=== PATIENT | male | born 1945 | race Asian ===

== ENCOUNTER 2021-02-19 14:05 | Inpatient (IN) | payer MEDICARE, OTHER ==
[~2021-02-19] VITALS: Ht 175.3 cm; Wt 73.9 kg
--- NOTE | 2021-02-19 14:15 | NUR ---
BIBRA86, AGITATED UPON LEARNING HE IS GOING TO ANOTHER REECE. PATIENT A/OX2, CZECH SPEAKER ONLY, FAMILY IN THE WAITING ROOM. PATIENT IS CALM AT THIS TIME. BREATHING EVEN AND UNLABORED. PLACED ON THE EDGE SANDER.
[2021-02-19] MEDS ORDERED: LORAZEPAM INJ 2 MG/ML VIAL IM ONE (15:00)
--- NOTE | 2021-02-19 15:08 | NUR ---
URINE SENT TO LAB.
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
--- NOTE | 2021-02-19 15:16 | NUR ---
LINETTE IS SON [phone] AND KEON IS DAUGHTER [phone]
[2021-02-19] MEDS ORDERED: LORAZEPAM INJ 2 MG/ML VIAL ONE (15:18)
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
[2021-02-19 15:24] LABS: BASOPHILS % (AUTO) 0.5 % (0.0-2.0); EOSINOPHILS % (AUTO) 0.6 % (0.0-6.0); HEMATOCRIT 33 % (39-51); HEMOGLOBIN 11.2 g/dL (13.5-17.5); LYMPHOCYTES # (AUTO) 1.6 K/uL (0.8-4.8); LYMPHOCYTES % (AUTO) 17.8 % (20.0-44.0); MEAN CORPUSCULAR HGB CONC 34 g/dl (31.0-36.0); MEAN CORPUSCULAR VOLUME 89 fL (80-96); MONOCYTES # (AUTO) 0.6 K/uL (0.1-1.30); MONOCYTES % (AUTO) 6.3 % (2.0-12.0); NEUTROPHILS # (AUTO) 6.7 K/uL (1.8-8.9); NEUTROPHILS % (AUTO) 74.8 % (43.0-81.0); PLATELET COUNT (AUTO) 288 K/uL (150-450); RED BLOOD CELL COUNT(AUTO) 3.67 MIL/uL (4.5-6.0); WHITE BLOOD COUNT (AUTO) 8.9 K/uL (4.3-11.0)
[2021-02-19 15:40] LABS: ALANINE AMINOTRANSFERASE 14 U/L (12-78); ALBUMIN 4.1 g/dL (3.4-5.0); ALKALINE PHOSPHATASE 86 U/L (46-116); ASPARTATE AMINOTRANSFERASE 13 U/L (15-37); BILIRUBIN,DIRECT 0.1 mg/dL (0.0-0.2); BILIRUBIN,TOTAL 0.3 mg/dL (0.2-1.0); CARBON DIOXIDE 29 mmol/L (21-32); CHLORIDE 107 mmol/L (98-107); CREATININE 2.3 mg/dL (0.6-1.3); GLUCOSE 144 mg/dL (74-106); POTASSIUM 4.1 mmol/L (3.5-5.1); SODIUM SERUM 145 mmol/L (136-145); TOTAL PROTEIN, SERUM 7.9 g/dL (6.4-8.2); UREA NITROGEN, BLOOD 30 mg/dL (7-18)
[2021-02-19 15:57] LABS: ACETAMINOPHEN 0 ug/ml (10-30); ALCOHOL, BLOOD < 10 mg/dL (0-0)
--- NOTE | 2021-02-19 15:59 | NUR ---
MOVE SHEET SUBMITTED.
[2021-02-19] MEDS ORDERED: TAMS-12 PO (16:13)
[2021-02-19] MEDS ORDERED: SEVE800T7 PO (16:13)
[2021-02-19] MEDS ORDERED: CYAN-51 PO (16:13)
[2021-02-19] MEDS ORDERED: DOCU-141 PO (16:13)
[2021-02-19] MEDS ORDERED: INSU100I26 SQ (16:13)
[2021-02-19] MEDS ORDERED: OMEP20CA15 PO (16:13)
[2021-02-19] MEDS ORDERED: BISA10SU11 RC (16:13)
[2021-02-19] MEDS ORDERED: NA P133E RC (16:13)
[2021-02-19] MEDS ORDERED: GABA-532 PO (16:13)
[2021-02-19] MEDS ORDERED: ALLO100T PO (16:13)
[2021-02-19] MEDS ORDERED: MAGN400O6 PO (16:13)
[2021-02-19] MEDS ORDERED: POLY17PO4 PO (16:13)
[2021-02-19] MEDS ORDERED: NIFE-34 PO (16:13)
[2021-02-19] MEDS ORDERED: SENN-261 PO (16:13)
[2021-02-19] MEDS ORDERED: ATOR40TA PO (16:13)
[2021-02-19] MEDS ORDERED: CALC500T63 PO (16:13)
[2021-02-19] MEDS ORDERED: INSU100V27 SQ (16:16)
[2021-02-19] MEDS ORDERED: LACT10SO3 PO (16:16)
[2021-02-19 16:24] LABS: BILIRUBIN,URINE Negative (NEGATIVE); COLOR,URINE YELLOW (YELLOW); LEUKOCYTE ESTERASE ,URINE Negative (NEGATIVE); NITRITE, URINE Negative (NEGATIVE); PH,URINE 6.5 (5.0-8.0); PROTEIN,URINE >=300 mg/dl (NEGATIVE); UGLUCOSE Negative (NEGATIVE); UROBILINOGEN,URINE 0.2 EU/dL (0.2)
[2021-02-19 16:37] LABS: BACTERIA,URINE Rare /HPF (None Seen); RBC,URINE 21-50 /HPF (0-2); SQUAMOUS EPITHELIAL CELL,UR Few /HPF (None Seen); WBC,URINE NONE SEEN /HPF (0-3)
[2021-02-19] MEDS ORDERED: IV 1/2NS 1000 ML 1,000 ML IV ONE ×3 (18:00→19:30)
--- NOTE | 2021-02-19 18:28 | NUR ---
PT COMING FROM [facility] [address] [place], [place] [id number]
--- NOTE | 2021-02-19 18:30 | NUR ---
CALLED NIKOLAI CURRAN [phone] ADRIANE INFORMS THAT PT HAS BEEN DISCHARGED AND NO LONGER A RESIDENT OF THAT FACILITY.
--- NOTE | 2021-02-19 18:46 | NUR ---
SPOKE WITH SANG THE SON [phone] WILL CALL US BACK AFTER SPEAKING WITH [employer].
--- NOTE | 2021-02-19 18:51 | NUR ---
LINETTE (SON) WILL BE HERE IN AN HOUR TO STRUCTURAL STEEL EQUIPMENT ERECTOR THE PATIENT
[2021-02-19] MEDS ORDERED: BISACODYL SUPP (10 MG) 10 MG/SUPP.RECT SUPP.RECT RC PRN (19:00)
[2021-02-19] MEDS ORDERED: MAGNESIUM HYDROXIDE 30 ML UDC PO PRN ×2 (19:00→21:30)
--- NOTE | 2021-02-19 19:07 | NUR ---
CALLED THE SON, GILLIAN CRISIS COAGULATING BATH MIXER IS AT BEDSIDE TO EVALUATE THE PATIENT.
--- NOTE | 2021-02-19 19:13 | NUR ---
COVID RESULT NEGATIVE (-)
--- NOTE | 2021-02-19 19:30 | NUR ---
PATIENT IN BED RESTING, VSS, CONNECTED TO CARDIAC AND POX. PATIENT IN NO ACUTE DISTRESS. WILL CONTINUE TO MONITOR.
--- NOTE | 2021-02-19 19:51 | NUR ---
ROOM 212-B
--- NOTE | 2021-02-19 19:56 | NUR ---
GPS WILL CALL BACK FOR REPORT.
--- NOTE | 2021-02-19 20:11 | NUR ---
REPORT GIVEN TO RN Faa.
--- NOTE | 2021-02-19 21:16 | NUR ---
PATIENT TRANSFERRED, VSS, PT IN NO ACUTE DISTRESS.
[2021-02-19] MEDS ORDERED: MAG HYDROX/AL HYDROX/SIMETH 30 ML UDC PO PRN (21:30)
[2021-02-19] MEDS ORDERED: BLOOD SUGAR DIAGNOSTIC 1 EACH STRIP IN ONE (21:30)
[2021-02-19] MEDS ORDERED: ZOLPIDEM TARTRATE 5 MG TABLET PO PRN (21:30)
[2021-02-19] MEDS: INSULIN GLARGINE, 100 UNIT/ML CARTRIDGE SQ SCH (22:00)
[2021-02-19] MEDS ORDERED: INSULIN GLARGINE,BASAGLAR 100 UNIT/ML INSULN.PEN SQ SCH (22:00)
[2021-02-19 22:01] LABS: CREATININE, URINE 162.3 MG/DL (30.0-125.0); URINE TOTAL PROTEIN 108.5 mg/dL (0-11.9)
[2021-02-19] MEDS: ATORVASTATIN 40 MG TABLET PO SCH (22:44)
--- NOTE | 2021-02-19 22:47 | NUR ---
GPS RN NOTES: PATIENT REFUSED LANTUS. BS 120MG/DL
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
[2021-02-20 04:08] VITALS: BP 145/82
[2021-02-20 07:13] LABS: BASOPHILS % (AUTO) 0.3 % (0.0-2.0); EOSINOPHILS % (AUTO) 2.7 % (0.0-6.0); HEMATOCRIT 35 % (39-51); HEMOGLOBIN 11.9 g/dL (13.5-17.5); LYMPHOCYTES # (AUTO) 3.1 K/uL (0.8-4.8); LYMPHOCYTES % (AUTO) 38.2 % (20.0-44.0); MEAN CORPUSCULAR HGB CONC 34 g/dl (31.0-36.0); MEAN CORPUSCULAR VOLUME 89 fL (80-96); MONOCYTES # (AUTO) 0.6 K/uL (0.1-1.30); MONOCYTES % (AUTO) 7.4 % (2.0-12.0); NEUTROPHILS # (AUTO) 4.2 K/uL (1.8-8.9); NEUTROPHILS % (AUTO) 51.4 % (43.0-81.0); PLATELET COUNT (AUTO) 329 K/uL (150-450); RED BLOOD CELL COUNT(AUTO) 3.94 MIL/uL (4.5-6.0); WHITE BLOOD COUNT (AUTO) 8.2 K/uL (4.3-11.0)
[2021-02-20 07:50] LABS: IRON, SERUM 67 ug/dl (50-175); TOTAL IRON BINDING CAPACITY 309 ug/dl (250-450)
[2021-02-20 07:53] LABS: CHOLESTEROL 125 mg/dL (<200); HDL CHOLESTEROL 60 mg/dL (40-60); LDL 44 mg/dL (0-99); TRIGLYCERIDES 124 mg/dL (30-150)
[2021-02-20 08:00] VITALS: BP 155/85
[2021-02-20 08:19] LABS: ALANINE AMINOTRANSFERASE 14 U/L (12-78); ALBUMIN 4.3 g/dL (3.4-5.0); ALKALINE PHOSPHATASE 94 U/L (46-116); ASPARTATE AMINOTRANSFERASE 13 U/L (15-37); BILIRUBIN,TOTAL 0.5 mg/dL (0.2-1.0); CALCIUM, SERUM 8.9 mg/dL (8.5-10.1); CARBON DIOXIDE 29 mmol/L (21-32); CHLORIDE 107 mmol/L (98-107); CREATININE 2.1 mg/dL (0.6-1.3); GLUCOSE 126 mg/dL (74-106); MAGNESIUM 2.3 mg/dL (1.8-2.4); PHOSPHORUS 3.8 mg/dL (2.5-4.9); POTASSIUM 3.9 mmol/L (3.5-5.1); SODIUM SERUM 146 mmol/L (136-145); TOTAL PROTEIN, SERUM 8.2 g/dL (6.4-8.2); UREA NITROGEN, BLOOD 28 mg/dL (7-18)
[2021-02-20] MEDS ORDERED: DEXTROSE 50%-WATER 50 ML DISP.SYRIN IV PRN ×2 (09:00)
[2021-02-20] MEDS ORDERED: *INSULIN REGULAR(HUMULIN R)HUM 100 UNIT/ML VIAL SQ PRN (09:00)
[2021-02-20] MEDS ORDERED: INSULIN REGULAR, HUMAN 100 UNIT/ML 3 ML VIAL SQ PRN (09:00)
[2021-02-20] MEDS: POLYETHYLENE GLYCOL 3350 17 GM POWD.PACK PO SCH (09:13)
[2021-02-20] MEDS: NIFEdipine XL (30MG) 30 MG TAB PO SCH (09:14)
[2021-02-20] MEDS: CYANOCOBALAMIN 500 MCG TABLET PO SCH (09:14)
[2021-02-20] MEDS: TAMSULOSIN 0.4 MG CAP.SR.24H PO SCH (09:15)
[2021-02-20] MEDS: LACTULOSE 10 G/15 ML UDC (PYXIS) PO SCH ×3 (09:15→16:18)
[2021-02-20] MEDS: CALCIUM CARBONATE 500 MG TAB.CHEW PO SCH ×2 (09:15→16:18)
[2021-02-20] MEDS: DOCUSATE SODIUM 100 MG CAPSULE PO SCH (09:15)
[2021-02-20] MEDS: PANTOPRAZOLE 40 MG TABLET.DR PO SCH (09:15)
[2021-02-20] MEDS: SENNOSIDES 8.6 MG TABLET PO SCH (09:15)
[2021-02-20] MEDS: ALLOPURINOL 100 MG TABLET PO SCH (09:16)
[2021-02-20] MEDS: SEVELAMER CARBONATE 800 MG TABLET PO SCH ×3 (09:18→17:16)
[2021-02-20] MEDS: BLOOD SUGAR DIAGNOSTIC 1 EACH STRIP VI SCH ×3 (11:27→22:44)
[2021-02-20] MEDS: INSULIN REGULAR, HUMAN 100 UNIT/ML 3 ML VIAL SQ PRN ×2 (11:40→17:14)
[2021-02-20] MEDS ORDERED: BLOOD SUGAR DIAGNOSTIC 1 EACH STRIP VI SCH (12:00)
[2021-02-20] MEDS: GABAPENTIN 300 MG CAPSULE PO SCH ×2 (12:13→21:34)
--- NOTE | 2021-02-20 15:28 | NUR ---
IV inserted of gauge #24 on right wrist. Pt. tolerated well with good blood return.
--- NOTE | 2021-02-20 15:42 | NUR ---
IVF STARTED 0.45 NS 1 LITER. IV SITE PATENT. NO SIGN OF INFILTRATION NOTED. WILL CONTINUE TO MONITOR.
[2021-02-20 16:00] VITALS: BP 134/79
[2021-02-20] MEDS: OLANZAPINE 2.5 MG TABLET PO SCH (16:18)
--- NOTE | 2021-02-20 19:36 | NUR ---
RN OPENING NOTES: RECEIVED PATIENT SLEEP IN BED, AROUSABLE TO STIMULI, BED IN LOW POSITION, CALL LIGHTS WITHIN REACH, NO COMPLAIN OF PAIN AND DISCOMFORT, ON IV HYDRATION OF 1/2 NSS@100ML, TO CONSUME, INFUSING WELL, IV LINE AT LFA#20, PATIENT KEPT CLEAN AND DRY,WILL CONTINUE TO MONITOR.
[2021-02-20 20:36] VITALS: BP 156/75
[2021-02-20] MEDS: ATORVASTATIN 40 MG TABLET PO SCH (21:34)
[2021-02-20] MEDS: INSULIN GLARGINE, 100 UNIT/ML CARTRIDGE SQ SCH (22:00)
--- NOTE | 2021-02-20 22:45 | NUR ---
RN NOTES LANTUS 12 U NOT GIVEN DUE TO LOW APPETITE BS-103 rEGULAR INSULIN PER SLIDING SCALE NOT GIVEN OUT OF PARAMETER BS-103
[2021-02-20] MEDS: ACETAMINOPHEN 325 MG TABLET PO PRN (23:58)
[2021-02-21] MEDS: GABAPENTIN 300 MG CAPSULE PO SCH ×3 (05:34→21:09)
[2021-02-21] MEDS: BLOOD SUGAR DIAGNOSTIC 1 EACH STRIP VI SCH ×4 (06:47→22:12)
--- NOTE | 2021-02-21 06:47 | NUR ---
RN NOTES: BS-85 NO INSULIN GIVEN, ORANGE JUICE GIVEN
[2021-02-21 08:00] VITALS: BP 145/87
[2021-02-21 08:03] LABS: CALCIUM, SERUM 8.9 mg/dL (8.5-10.1); CARBON DIOXIDE 27 mmol/L (21-32); CHLORIDE 108 mmol/L (98-107); CREATININE 2.2 mg/dL (0.6-1.3); GLUCOSE 152 mg/dL (74-106); MAGNESIUM 2.5 mg/dL (1.8-2.4); PHOSPHORUS 4.1 mg/dL (2.5-4.9); POTASSIUM 4.4 mmol/L (3.5-5.1); SODIUM SERUM 145 mmol/L (136-145); UREA NITROGEN, BLOOD 26 mg/dL (7-18)
[2021-02-21 08:07] LABS: *SPE A/G RATIO 1.1 (0.7-1.7); *SPE ALPHA-1-GLOBULIN 0.3 g/dL (0.0-0.4); *SPE ALPHA-2-GLOBULIN 0.7 g/dL (0.4-1.0); *SPE BETA GLOBULIN 1.2 g/dL (0.7-1.3); *SPE M-SPIKE Not Observed g/dL (Not Observed)
[2021-02-21] MEDS: OLANZAPINE 2.5 MG TABLET PO SCH ×2 (08:51→16:12)
[2021-02-21] MEDS: CALCIUM CARBONATE 500 MG TAB.CHEW PO SCH ×2 (08:51→16:12)
[2021-02-21] MEDS: LACTULOSE 10 G/15 ML UDC (PYXIS) PO SCH ×3 (08:51→16:12)
[2021-02-21] MEDS: TAMSULOSIN 0.4 MG CAP.SR.24H PO SCH (08:51)
[2021-02-21] MEDS: POLYETHYLENE GLYCOL 3350 17 GM POWD.PACK PO SCH (08:51)
[2021-02-21] MEDS: ALLOPURINOL 100 MG TABLET PO SCH (08:52)
[2021-02-21] MEDS: SENNOSIDES 8.6 MG TABLET PO SCH (08:52)
[2021-02-21] MEDS: NIFEdipine XL (30MG) 30 MG TAB PO SCH (08:52)
[2021-02-21] MEDS: CYANOCOBALAMIN 500 MCG TABLET PO SCH (08:52)
[2021-02-21] MEDS: DOCUSATE SODIUM 100 MG CAPSULE PO SCH (08:52)
[2021-02-21] MEDS: PANTOPRAZOLE 40 MG TABLET.DR PO SCH (08:52)
[2021-02-21] MEDS: SEVELAMER CARBONATE 800 MG TABLET PO SCH ×3 (08:53→17:12)
[2021-02-21 09:35] LABS: BASOPHILS % (AUTO) 0.2 % (0.0-2.0); EOSINOPHILS % (AUTO) 3.7 % (0.0-6.0); HEMATOCRIT 37 % (39-51); HEMOGLOBIN 12.2 g/dL (13.5-17.5); LYMPHOCYTES # (AUTO) 2.3 K/uL (0.8-4.8); LYMPHOCYTES % (AUTO) 33.4 % (20.0-44.0); MEAN CORPUSCULAR HGB CONC 33 g/dl (31.0-36.0); MEAN CORPUSCULAR VOLUME 91 fL (80-96); MONOCYTES # (AUTO) 0.5 K/uL (0.1-1.30); MONOCYTES % (AUTO) 7.3 % (2.0-12.0); NEUTROPHILS # (AUTO) 3.9 K/uL (1.8-8.9); NEUTROPHILS % (AUTO) 55.4 % (43.0-81.0); PLATELET COUNT (AUTO) 143 K/uL (150-450); RED BLOOD CELL COUNT(AUTO) 4.03 MIL/uL (4.5-6.0)
[2021-02-21] MEDS: INSULIN REGULAR, HUMAN 100 UNIT/ML 3 ML VIAL SQ PRN (12:56)
[2021-02-21 16:00] VITALS: BP 150/74
--- NOTE | 2021-02-21 16:30 | NUR ---
GPS/RN ACCUCHECK WITH BS=66. ORANGE JUICE GIVEN
[2021-02-21 20:13] VITALS: BP 120/78
[2021-02-21] MEDS: ATORVASTATIN 40 MG TABLET PO SCH (21:09)
[2021-02-21] MEDS: INSULIN GLARGINE, 100 UNIT/ML CARTRIDGE SQ SCH (22:00)
[2021-02-21] MEDS: *INSULIN REGULAR(HUMULIN R)HUM 100 UNIT/ML VIAL SQ PRN (22:11)
--- NOTE | 2021-02-21 23:09 | NUR ---
RN NOTES: PT. REFUSED LANTUS , ENCOURAGED X3 , RISK / BENFITS EXPLINED , PT. STILL REFUSED , WILL CONTINUTY WITH CARE.
[2021-02-22] MEDS: GABAPENTIN 300 MG CAPSULE PO SCH ×3 (05:29→21:03)
[2021-02-22 08:00] VITALS: BP 137/89
[2021-02-22] MEDS: SEVELAMER CARBONATE 800 MG TABLET PO SCH ×3 (08:46→18:37)
[2021-02-22] MEDS: BLOOD SUGAR DIAGNOSTIC 1 EACH STRIP VI SCH ×4 (08:46→22:09)
[2021-02-22] MEDS: POLYETHYLENE GLYCOL 3350 17 GM POWD.PACK PO SCH (08:51)
[2021-02-22] MEDS: LACTULOSE 10 G/15 ML UDC (PYXIS) PO SCH ×3 (08:52→17:34)
[2021-02-22] MEDS: OLANZAPINE 2.5 MG TABLET PO SCH ×2 (08:52→17:34)
[2021-02-22] MEDS: NIFEdipine XL (30MG) 30 MG TAB PO SCH (08:52)
[2021-02-22] MEDS: CALCIUM CARBONATE 500 MG TAB.CHEW PO SCH ×2 (08:53→17:34)
[2021-02-22] MEDS: ALLOPURINOL 100 MG TABLET PO SCH (08:53)
[2021-02-22] MEDS: DOCUSATE SODIUM 100 MG CAPSULE PO SCH (08:53)
[2021-02-22] MEDS: SENNOSIDES 8.6 MG TABLET PO SCH (08:53)
[2021-02-22] MEDS: CYANOCOBALAMIN 500 MCG TABLET PO SCH (08:54)
[2021-02-22] MEDS: PANTOPRAZOLE 40 MG TABLET.DR PO SCH (08:54)
[2021-02-22] MEDS: TAMSULOSIN 0.4 MG CAP.SR.24H PO SCH (08:54)
[2021-02-22] MEDS: INSULIN REGULAR, HUMAN 100 UNIT/ML 3 ML VIAL SQ PRN (12:35)
[2021-02-22 16:00] VITALS: BP 128/79
[2021-02-22 20:03] VITALS: BP 114/70
[2021-02-22] MEDS: ATORVASTATIN 40 MG TABLET PO SCH (21:03)
[2021-02-22] MEDS: INSULIN GLARGINE, 100 UNIT/ML CARTRIDGE SQ SCH (22:00)
[2021-02-22] MEDS: *INSULIN REGULAR(HUMULIN R)HUM 100 UNIT/ML VIAL SQ PRN (22:10)
--- NOTE | 2021-02-22 22:11 | NUR ---
RN NOTES: PT. REFUSED LANTUS , ENCOURAGED X3 , RISK / BENFITS EXPLINED , PT. STILL REFUSED , WILL CONTINUTY WITH CARE.
[2021-02-23] MEDS: LORAZEPAM 0.5 MG TABLET PO PRN ×3 (00:18→23:20)
--- NOTE | 2021-02-23 00:20 | NUR ---
RN NOTES : ANXIETY PT. NOTED VERY ANXIOUS RESTLESS, PARANOID, NON REDIIRECTABLE ATIVAN 1 MG PO PRN GIVEN PER PT. REQUEST , WILL CONTINUE TO MONITOR.
[2021-02-23] MEDS: GABAPENTIN 300 MG CAPSULE PO SCH ×3 (04:34→21:29)
[2021-02-23] MEDS: BLOOD SUGAR DIAGNOSTIC 1 EACH STRIP VI SCH ×4 (07:45→22:09)
[2021-02-23 08:00] VITALS: BP 148/75
[2021-02-23] MEDS: POLYETHYLENE GLYCOL 3350 17 GM POWD.PACK PO SCH (08:53)
[2021-02-23] MEDS: PANTOPRAZOLE 40 MG TABLET.DR PO SCH (08:53)
[2021-02-23] MEDS: CALCIUM CARBONATE 500 MG TAB.CHEW PO SCH ×2 (08:53→16:57)
[2021-02-23] MEDS: SENNOSIDES 8.6 MG TABLET PO SCH (08:53)
[2021-02-23] MEDS: ALLOPURINOL 100 MG TABLET PO SCH (08:54)
[2021-02-23] MEDS: LACTULOSE 10 G/15 ML UDC (PYXIS) PO SCH ×3 (08:54→16:57)
[2021-02-23] MEDS: DOCUSATE SODIUM 100 MG CAPSULE PO SCH (08:54)
[2021-02-23] MEDS: CYANOCOBALAMIN 500 MCG TABLET PO SCH (08:54)
[2021-02-23] MEDS: TAMSULOSIN 0.4 MG CAP.SR.24H PO SCH (08:54)
[2021-02-23] MEDS: OLANZAPINE 2.5 MG TABLET PO SCH ×2 (08:54→16:57)
[2021-02-23] MEDS: NIFEdipine XL (30MG) 30 MG TAB PO SCH (08:55)
[2021-02-23] MEDS: SEVELAMER CARBONATE 800 MG TABLET PO SCH ×3 (08:55→17:00)
[2021-02-23] MEDS: INSULIN REGULAR, HUMAN 100 UNIT/ML 3 ML VIAL SQ PRN ×3 (11:52→22:12)
--- NOTE | 2021-02-23 14:48 | NUR ---
RN NOTE: NOTICED PATIENT STARTED TO GET RESTLESS AND VERY ANXIOUS. UNABLE TO REDIRECT, ADMINISTERED PRN ATIVAN 1mg PO ORDERED. WILL REASSESS AND CONTINUE TO MONITOR PATIENT.
[2021-02-23 16:00] VITALS: BP 131/72
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
[2021-02-23 20:00] VITALS: BP 113/59
[2021-02-23] MEDS: ATORVASTATIN 40 MG TABLET PO SCH (21:29)
--- NOTE | 2021-02-23 21:31 | NUR ---
GPS RN NOTES: AMBIEN 5MG GIVEN PO PRN ORDERED AT 2128. WILL CONTINUE TO MONITOR.
[2021-02-23] MEDS: INSULIN GLARGINE, 100 UNIT/ML CARTRIDGE SQ SCH (22:14)
--- NOTE | 2021-02-23 23:21 | NUR ---
GPS RN NOTES: PATIENT IS RESTLESS, ANXIOUS, AGITATED, REFUSING REDIRECTION. ATIVAN 1MG GIVEN PO PRN ORDERED AT 2320. WILL CONTINUE TO MONITOR.
--- NOTE | 2021-02-24 02:10 | NUR ---
GPS RN NOTES: PATIENT IS AWAKE, A/O X1. PATIENT IS RESTLESS, ANXIOUS, SPEAKING TO SELF IN AZERI LANGUAGE. UNABLE TO SLEEP, UNABLE TO FOLLOW REDIRECTION. PATIENT IS UNABLE TO STAND ON HIS OWN. SECURITY CALLED TO HELP PUT PATIENT IN SHON CHAIR FOR HIS SAFETY. WILL CONTINUE TO MONITOR.
--- NOTE | 2021-02-24 05:20 | NUR ---
GPS RN NOTES: WEEKLY SKIN ASSESSMENT DONE, SKIN INTACT.
[2021-02-24] MEDS: GABAPENTIN 300 MG CAPSULE PO SCH ×2 (06:11→12:22)
--- NOTE | 2021-02-24 06:52 | NUR ---
GPS RN CLOSING NOTES: PATIENT IS CURRENTLY SLEEPING IN BED. PATIENT SLEPT 1HR THIS SHIFT. PATIENT HAS NO S/S OF DISTRESS. RESPIRATION EVEN AND UNLABORED WITH EQUAL RISE AND FALL OF THE CHEST, ON ROOM AIR. ALL PATIENT CARE NEEDS HAVE BEEN MET ANTICIPATED. WILL CONTINUE TO MONITOR AND ENDORSE TO AM SHIFT.
[2021-02-24] MEDS: BLOOD SUGAR DIAGNOSTIC 1 EACH STRIP VI SCH ×4 (07:53→20:44)
[2021-02-24] MEDS: SEVELAMER CARBONATE 800 MG TABLET PO SCH ×3 (08:03→17:05)
[2021-02-24] MEDS: DOCUSATE SODIUM 100 MG CAPSULE PO SCH (08:04)
[2021-02-24] MEDS: CALCIUM CARBONATE 500 MG TAB.CHEW PO SCH ×2 (08:04→17:05)
[2021-02-24] MEDS: LACTULOSE 10 G/15 ML UDC (PYXIS) PO SCH ×3 (08:04→17:05)
[2021-02-24] MEDS: TAMSULOSIN 0.4 MG CAP.SR.24H PO SCH (08:04)
[2021-02-24] MEDS: CYANOCOBALAMIN 500 MCG TABLET PO SCH (08:04)
[2021-02-24] MEDS: PANTOPRAZOLE 40 MG TABLET.DR PO SCH (08:05)
[2021-02-24] MEDS: POLYETHYLENE GLYCOL 3350 17 GM POWD.PACK PO SCH (08:06)
[2021-02-24] MEDS: NIFEdipine XL (30MG) 30 MG TAB PO SCH (08:06)
[2021-02-24] MEDS: OLANZAPINE 2.5 MG TABLET PO SCH (08:06)
[2021-02-24] MEDS: ALLOPURINOL 100 MG TABLET PO SCH (08:06)
[2021-02-24] MEDS: SENNOSIDES 8.6 MG TABLET PO SCH (08:06)
[2021-02-24 08:11] VITALS: BP 146/70
[2021-02-24] MEDS: INSULIN REGULAR, HUMAN 100 UNIT/ML 3 ML VIAL SQ PRN ×2 (12:13→17:39)
--- NOTE | 2021-02-24 12:28 | NUR ---
Home Health: JAM received call from pt.'s HH agency: Replaced by [facility] [phone] and spoke to Desiree who was inquiring about pt.'s discharge date. JAM informed Desiree that this SW will notify HH of discharge date when informed by psychiatrist. Desiree is agreeable.
--- NOTE | 2021-02-24 12:34 | NUR ---
Point of Contact: The patients point of contact is his daughter, Imelda Morgan [phone] and son, Jaydon [phone].
--- NOTE | 2021-02-24 12:35 | NUR ---
Initial D/C PLan: JAM Bridges discussed D/C plans with the patients daughter Imelda Morgan [phone] and son, Jaydon [phone]. Patient PCP is Dr. Will In [phone]. Discharge plans discussed, and familys preference is for patient to be placed in a facility. JAM will continue to collaborate with psychiatrist, pt. & family to plan safe & proper D/C planning.
[2021-02-24] MEDS: ACETAMINOPHEN 325 MG TABLET PO PRN ×2 (14:24→20:29)
--- NOTE | 2021-02-24 14:25 | NUR ---
PT'S TEMPERATURE IS 101.4 DR CASTELLANOS CALLED NEW STAT ORDERS GIVEN CRX, BMP, BLOOD CULTURE, CBC, UA C&S. TYLENOL GIVEN FOR FEVER. WILL CONTINUE TO MONITOR.
--- NOTE | 2021-02-24 15:00 | NUR ---
RN-CO: ORACLE DATABASE ANALYST LATESHA MADE AWARE OF THE CHANGE OF CONDITION.
--- NOTE | 2021-02-24 15:08 | NUR ---
stat covid 19 antigen test done as ordered. pt's temperature is 103.5. cooling measures initiated. will continue to monitor.
--- NOTE | 2021-02-24 15:11 | NUR ---
RN-CO: DAUGHTER KEON DENIS NOTIFIED OF PT'S CHANGE OF CONDITION. [phone]
--- NOTE | 2021-02-24 15:50 | NUR ---
oral temperature taken 103.0 will continue to monitor.
[2021-02-24 16:02] LABS: BASOPHILS % (AUTO) 0.2 % (0.0-2.0); EOSINOPHILS % (AUTO) 0.1 % (0.0-6.0); HEMATOCRIT 32 % (39-51); HEMOGLOBIN 10.8 g/dL (13.5-17.5); LYMPHOCYTES % (AUTO) 9.5 % (20.0-44.0); MEAN CORPUSCULAR HGB CONC 34 g/dl (31.0-36.0); MEAN CORPUSCULAR VOLUME 91 fL (80-96); MONOCYTES # (AUTO) 0.7 K/uL (0.1-1.30); MONOCYTES % (AUTO) 7.1 % (2.0-12.0); NEUTROPHILS # (AUTO) 8.7 K/uL (1.8-8.9); NEUTROPHILS % (AUTO) 83.1 % (43.0-81.0); PLATELET COUNT (AUTO) 268 K/uL (150-450); RED BLOOD CELL COUNT(AUTO) 3.55 MIL/uL (4.5-6.0); WHITE BLOOD COUNT (AUTO) 10.5 K/uL (4.3-11.0)
[2021-02-24 16:20] VITALS: BP 119/82
--- NOTE | 2021-02-24 16:42 | NUR ---
RN NOTE- I&O CATHETER PERFORMED W 15F CATH KIT. UA CX OBTAINED. SENT TO LAB. TOLERATED WELL.
--- NOTE | 2021-02-24 16:51 | NUR ---
ORAL TEMP TAKEN 102.0. WILL CONTINUE TO MONITOR.
[2021-02-24 17:02] LABS: CALCIUM, SERUM 8.1 mg/dL (8.5-10.1); CARBON DIOXIDE 26 mmol/L (21-32); CHLORIDE 104 mmol/L (98-107); CREATININE 2.4 mg/dL (0.6-1.3); GLUCOSE 215 mg/dL (74-106); POTASSIUM 4.1 mmol/L (3.5-5.1); SODIUM SERUM 142 mmol/L (136-145); UREA NITROGEN, BLOOD 35 mg/dL (7-18)
--- NOTE | 2021-02-24 17:48 | NUR ---
PATIENT'S TEMPERATURE IS 100.7. WILL CONTINUE TO MONITOR.
--- NOTE | 2021-02-24 18:07 | NUR ---
DR MOLLY CASTELLANOS CONTACTED VIA EXCHANGE TO CALL BACK FOR AVAILABLE RESULTS.
--- NOTE | 2021-02-24 18:32 | NUR ---
DR CASTELLANOS CALLED BACK AND WAS INFORMED OF AVAILABLE LAB AND IMAGING RESULTS. WITHOUT NEW ORDERS. DR CASTELLANOS WISHES TO BE CONTACTED WITH URINALYSIS RESULTS. WILL ENDORSE TO NOC SHIFT.
--- NOTE | 2021-02-24 18:50 | NUR ---
RN NOTE- PT TEMP 98.8. BLADDER SCANNED. PT W 240CC UA. NO DISTENSION.
[2021-02-24 20:00] VITALS: BP 108/84
[2021-02-24] MEDS: ATORVASTATIN 40 MG TABLET PO SCH (21:36)
[2021-02-24] MEDS: INSULIN GLARGINE, 100 UNIT/ML CARTRIDGE SQ SCH (21:41)
[2021-02-24] MEDS ORDERED: TRAZODONE 50 MG TABLET PO SCH (22:00)
[2021-02-24] MEDS ORDERED: OLANZAPINE 10 MG TABLET PO SCH (22:00)
[2021-02-24 22:50] LABS: BILIRUBIN,URINE NEGATIVE (NEGATIVE); COLOR,URINE YELLOW (YELLOW); LEUKOCYTE ESTERASE ,URINE NEGATIVE (NEGATIVE); NITRITE, URINE NEGATIVE (NEGATIVE); PH,URINE 6.5 (5.0-8.0); PROTEIN,URINE 100 mg/dl (NEGATIVE); UGLUCOSE NEGATIVE (NEGATIVE); UROBILINOGEN,URINE 0.2 EU/dL (0.2)
[2021-02-24 23:35] LABS: RBC,URINE 21-50 /HPF (0-2)
[2021-02-24 23:36] LABS: BACTERIA,URINE Few /HPF (None Seen); SQUAMOUS EPITHELIAL CELL,UR Few /HPF (None Seen); URINE AMORPHOUS URATE Few /HPF (None Seen)
--- NOTE | 2021-02-25 04:53 | NUR ---
CLOSING NOTES: AWAKE THRU THE NIGHT. MULTIPLE ATTEMPTS TO GET OOB UNASSISTED. PLACED IN A SHON CHAIR WITH THE ASSIST OF 2 MEN MAX ASSIST. HIS LEGS WITH NO STRENGTH TO STAND, A LIFT TO THE CHAIR. START OF THE SHIFT T 99.9 ORALLY JUICY GIVEN AND TYLENOL GIVEN. INCONTINENT OF URINE THRU THE NIGHT DIAPER BEING WORN. AT 4AM THE TEMP 98.8 240 ML COOL WATER ENJOYED SWALLOWS W/O PROBLEM, UNABLE TO HOLD THE CUP AND DRINK NEEDING ASSIST. SPEAKING DANISH AND NOTED WHEN IN THE SHON CHAIR HE WAS HALLUCINATING REACHING OUT FOR IMAGINARY OBJECT AND PLACING THEM ON HIS TRAY. [place] SAMPLE WAS P/U AT 2230 BY THE LAB AND UA DONE RESULT SHOW THE UA CLOUDY BUT WBC 3 - 5 NITRATES NEGATIVE BACTERIA FEW TALKED OVER WITH CHARGE NURSE DECIDED TO BRING THE RESULTS TO THE MD'S ATTENTION IN THE AM.
[2021-02-25] MEDS: BLOOD SUGAR DIAGNOSTIC 1 EACH STRIP VI SCH ×3 (07:45→16:55)
[2021-02-25] MEDS ORDERED: LEVOFLOXACIN (250MG) 250 MG TABLET PO SCH (08:00)
[2021-02-25] MEDS: INSULIN REGULAR, HUMAN 100 UNIT/ML 3 ML VIAL SQ PRN ×3 (08:01→17:23)
[2021-02-25] MEDS: LACTULOSE 10 G/15 ML UDC (PYXIS) PO SCH ×3 (08:18→17:00)
[2021-02-25] MEDS: SEVELAMER CARBONATE 800 MG TABLET PO SCH ×3 (08:19→17:00)
[2021-02-25] MEDS: POLYETHYLENE GLYCOL 3350 17 GM POWD.PACK PO SCH (08:19)
[2021-02-25] MEDS: PANTOPRAZOLE 40 MG TABLET.DR PO SCH (08:19)
[2021-02-25] MEDS: CALCIUM CARBONATE 500 MG TAB.CHEW PO SCH ×2 (08:20→17:00)
[2021-02-25] MEDS: CYANOCOBALAMIN 500 MCG TABLET PO SCH (08:21)
[2021-02-25] MEDS: NIFEdipine XL (30MG) 30 MG TAB PO SCH (08:21)
[2021-02-25] MEDS: TAMSULOSIN 0.4 MG CAP.SR.24H PO SCH (08:21)
[2021-02-25] MEDS: DOCUSATE SODIUM 100 MG CAPSULE PO SCH (08:22)
[2021-02-25] MEDS: ALLOPURINOL 100 MG TABLET PO SCH (08:22)
[2021-02-25] MEDS: SENNOSIDES 8.6 MG TABLET PO SCH (08:22)
[2021-02-25] MEDS ORDERED: OLANZAPINE 2.5 MG TABLET PO SCH (09:00)
[2021-02-25 09:18] VITALS: BP 141/70
--- NOTE | 2021-02-25 10:32 | NUR ---
Utilization Review note: JAM contacted Vannesa at [facility] [employer] [facility] ([phone]). Vannesa notified JAM that next utilization review can be completed this 02/28/21. Clinicals to be sent twice a week. Addendum: 02/25/21 at 1238 by PEARL POLK Authorization # [id number]
--- NOTE | 2021-02-25 11:45 | NUR ---
D/C Planning: JAM contacted pt's family, daughter, Imelda Morgan [phone] and son, Jaydon [phone] to discuss discharge planning. JAM left pt's daughter and son a voicemail. SS will continue to F/U with points of contact to discuss D/C planning.
--- NOTE | 2021-02-25 15:30 | NUR ---
D/C Planning: SW was contacted by pt's daughter, Imelda, , to discuss tx and D/C plans. Pt's daughter requested for pt to be D/C to an assisted/independent living facility. SS will continue to f/u with D/C plan.
[2021-02-25 16:00] VITALS: BP 135/84
[2021-02-25 17:11] LABS: BASOPHILS # (AUTO) 0.1 K/uL (0.0-0.2); BASOPHILS % (AUTO) 0.3 % (0.0-2.0); EOSINOPHILS % (AUTO) 0.2 % (0.0-6.0); HEMATOCRIT 38 % (39-51); HEMOGLOBIN 12.3 g/dL (13.5-17.5); LYMPHOCYTES # (AUTO) 2.2 K/uL (0.8-4.8); MEAN CORPUSCULAR HGB CONC 33 g/dl (31.0-36.0); MEAN CORPUSCULAR VOLUME 92 fL (80-96); MONOCYTES # (AUTO) 1.2 K/uL (0.1-1.30); MONOCYTES % (AUTO) 6.9 % (2.0-12.0); NEUTROPHILS # (AUTO) 14.5 K/uL (1.8-8.9); NEUTROPHILS % (AUTO) 80.6 % (43.0-81.0); PLATELET COUNT (AUTO) 161 K/uL (150-450); RED BLOOD CELL COUNT(AUTO) 4.11 MIL/uL (4.5-6.0)
[2021-02-25 17:25] LABS: CARBON DIOXIDE 25 mmol/L (21-32); CHLORIDE 100 mmol/L (98-107); CREATININE 2.6 mg/dL (0.6-1.3); GLUCOSE 175 mg/dL (74-106); POTASSIUM 4.3 mmol/L (3.5-5.1); SODIUM SERUM 137 mmol/L (136-145); UREA NITROGEN, BLOOD 40 mg/dL (7-18)
[2021-02-25 17:27] LABS: SERUM AMMONIA < 10 umol/L (11-32)
[2021-02-25 17:33] LABS: ALANINE AMINOTRANSFERASE 16 U/L (12-78); ALBUMIN 3.7 g/dL (3.4-5.0); ALKALINE PHOSPHATASE 83 U/L (46-116); ASPARTATE AMINOTRANSFERASE 42 U/L (15-37); BILIRUBIN,TOTAL 0.5 mg/dL (0.2-1.0); TOTAL PROTEIN, SERUM 8.4 g/dL (6.4-8.2)
[2021-02-25] MEDS: ACETAMINOPHEN 325 MG TABLET PO PRN (18:15)
--- NOTE | 2021-02-25 19:50 | NUR ---
GPS-RN NOTES: RECEIVED A CALL FROM DR. MELO TO TRANSFER PATIENT TO MEDICAL FLOOR DUE TO SEPSIS. DR. BARNES MADE AWARE OF THE TRANSFER. NOTIFIED NURSING CORPSMAN KLEVER REGARDING PATIENT'S TRANSFER.
--- NOTE | 2021-02-25 20:01 | NUR ---
Orders received to transfer to med surg floor daughter Imelda called and made aware
--- NOTE | 2021-02-25 20:50 | NUR ---
Pt alert to self and nurse at the bedside speaking pashto temp 99.9 orally in bed skin warm to touch call from MD MELO to send to med/surg floor report given MEENA Tello goingto room 323-2 moved via bed belongs given to the receiving nurse eye glasses covid vaccine card clothes and told her his watch is in the safe
[2021-02-25] MEDS ORDERED: TRAZODONE 50 MG TABLET PO SCH (22:00)
== END 2021-02-25 20:43 | disposition short-term general hospital (02) | DRG 885 ==
LOC: ER 14:29 → GPS 20:47
PROVIDERS: ADMIT Psychiatry & Neurology Psychiatry; ATTEND Registered Nurse
DX: F29 Unspecified psychosis not due to a substance or known physiological condition (principal); N17.9 Acute kidney failure, unspecified; N18.9 Chronic kidney disease, unspecified; F23 Brief psychotic disorder; F03.91 Unspecified dementia, unspecified severity, with behavioral disturbance; Z20.822 Contact with and (suspected) exposure to COVID-19; N40.0 Benign prostatic hyperplasia without lower urinary tract symptoms; M10.9 Gout, unspecified; E11.22 Type 2 diabetes mellitus with diabetic chronic kidney disease; I12.9 Hypertensive chronic kidney disease with stage 1 through stage 4 chronic kidney disease, or unspecified chronic kidney disease; K21.9 Gastro-esophageal reflux disease without esophagitis; R31.29 Other microscopic hematuria; G62.9 Polyneuropathy, unspecified; Z91.81 History of falling; F25.0 Schizoaffective disorder, bipolar type
CPT/HCPCS: 36415; 70450-TC; 71045-TC; 73521; 76770-TC; 80048-TC; 80053-TC; 80061-TC; 80076-TC; 81001; 82140-TC; 82570-TC; 82962-TC; 83540-TC; 83735-TC; 83970; 84100-TC; 84155; 84155-TC; 84165; 84300-TC; 85025-TC; 87040-TC; 87081-TC; C9803; G0480; J1815; J2060; J3490

== ENCOUNTER 2021-02-25 20:36 | Inpatient (IN) | payer MEDICARE, OTHER ==
[~2021-02-25] VITALS: Ht 175.3 cm; Wt 75.1 kg
[~2021-02-25 20:36] MED LIST: ALLO100T PO; ATOR40TA PO; BISA10SU11 RC; CALC500T63 PO; CYAN-51 PO; DOCU-141 PO; GABA-532 PO; INSU100I26 SQ; INSU100V27 SQ; LACT10SO3 PO; MAGN400O6 PO; NA P133E RC; NIFE-34 PO; OMEP20CA15 PO; POLY17PO4 PO; SENN-261 PO; SEVE800T7 PO; TAMS-12 PO
--- NOTE | 2021-02-25 20:50 | NUR ---
MS ROBLEDO ADMITTING NOTE RECEIVED REPORT FROM [employer]WAF ROBLEDO GPS. PT TRANSFERRED FROM [facility] DX: SEPSIS. PT A/OX1. ON ROOM AIR TOLERATING WELL WITH NO SOB. SKIN INTACT. NO S/SX OF PAIN OR ACUTE DISTRESS. FEBRILE TEMP 100.3F. ALL BELONGINGS AT PT'S BED SIDE. EDUCATED PATIENT TO ORIENT TO ROOM, STAFF, AND UNIT. SAFETY MEASURES IN PLACE: BED IN LOWEST LOCKED POSITION, SIDE RAILS UPX2, CALL LIGHT WITHIN EASY REACH. PT IN STABLE CONDITION; WILL CONTINUE PLAN OF CARE.
--- NOTE | 2021-02-25 20:50 | NUR ---
pt alert to self and nurse at the bedside speaking english temp 99.9 orally in bed skin warm to touch call from MD Briceño to send to med/surg floor report given MEENA Tello goingto room 323-2 moved via bed belongs given to the receiving nurse eye glasses covid vaccine card clothes and told her his watch is in the safe
[2021-02-25] MEDS ORDERED: Z GUARD REMEDY 2 OZ OINT TP PRN (21:30)
[2021-02-25] MEDS ORDERED: DEXTROSE 50%-WATER 50 ML DISP.SYRIN IV PRN (21:30)
[2021-02-25] MEDS ORDERED: NA PHOS,M-B/NA PHOS,DI-BA 1 EA ENEMA RC PRN (21:30)
[2021-02-25] MEDS ORDERED: ONDANSETRON HCL/PF 4 MG/2 ML VIAL IVP PRN (21:30)
[2021-02-25] MEDS ORDERED: BISACODYL SUPP (10 MG) 10 MG/SUPP.RECT SUPP.RECT RC PRN (21:30)
[2021-02-25] MEDS ORDERED: MAG HYDROX/AL HYDROX/SIMETH 30 ML UDC PO PRN (21:30)
[2021-02-25] MEDS ORDERED: MAGNESIUM HYDROXIDE 30 ML UDC PO PRN ×2 (21:30)
[2021-02-25 22:00] VITALS: BP 134/72
[2021-02-25] MEDS: BLOOD SUGAR DIAGNOSTIC 1 EACH STRIP IN SCH (22:28)
[2021-02-25] MEDS: ATORVASTATIN 40 MG TABLET PO SCH (22:28)
[2021-02-25] MEDS: INSULIN GLARGINE, 100 UNIT/ML CARTRIDGE SQ SCH (22:32)
[2021-02-25] MEDS: INSULIN REGULAR, HUMAN 100 UNIT/ML 3 ML VIAL SQ PRN (22:34)
[2021-02-25] MEDS: IV NS 0.9% 1,000 ML IV PRN (22:36)
--- NOTE | 2021-02-25 22:49 | NUR ---
MS RN NOTE INITIATED IV: RAC #18G NS @75ML/HR; PATENT AND INTACT. 1:1 SITTER AT BEDSIDE FOR SAFETY
--- NOTE | 2021-02-25 23:00 | NUR ---
MS RN NOTE TEMP 97.7F. WILL CONT TO APPLY COOLING MEASURES AND MONITOR TEMP
[2021-02-25] MEDS ORDERED: VANCOMYCIN 1.25 GM in IV D5W 250 ML IV ONE (23:45)
[2021-02-25] MEDS ORDERED: ZOSYN IVPB 3.375 G in IV D5W 50ml IV ONE (23:45)
[2021-02-25] MEDS ORDERED: PIPERACILLIN /TAZOBACTAM 3.375 G VIAL IV ONE (23:58)
[2021-02-25] MEDS ORDERED: VANCOMYCIN 1 GM VIAL ONE (23:58)
[2021-02-26] MEDS ORDERED: VANCOMYCIN 1 GM VIAL ONE
--- NOTE | 2021-02-26 00:26 | NUR ---
MS RN NOTE - MRSA MRSA SWAB COLLECTED VIA R NARE AND NOTIFIED LAB CARMEN
[2021-02-26] MEDS: GABAPENTIN 300 MG CAPSULE PO SCH ×3 (04:28→21:13)
--- NOTE | 2021-02-26 05:24 | NUR ---
MS RN CLOSING NOTE PT A/OX; CONFUSED. ON ROOM AIR TOLERATING WELL WITH NO SOB. SKIN INTACT. NO S/SX OF PAIN OR ACUTE DISTRESS. RAC #18G S/L NS @ 75ML/HR; PATENT AND INTACT. SAFETY MEASURES IN PLACE: BED IN LOWEST LOCKED POSITION, SIDE RAILS UPX2, CALL LIGHT WITHIN EASY REACH, 1:1 SITTER AT BEDSIDE. PT IN STABLE CONDITION; WILL CONTINUE PLAN OF CARE.
[2021-02-26 06:14] LABS: CHOLESTEROL 98 mg/dL (<200); HDL CHOLESTEROL 56 mg/dL (40-60); LDL 31 mg/dL (0-99); TRIGLYCERIDES 101 mg/dL (30-150)
[2021-02-26 06:19] LABS: ALANINE AMINOTRANSFERASE 15 U/L (12-78); ALBUMIN 3.1 g/dL (3.4-5.0); ALKALINE PHOSPHATASE 70 U/L (46-116); ASPARTATE AMINOTRANSFERASE 43 U/L (15-37); BILIRUBIN,TOTAL 0.6 mg/dL (0.2-1.0); CALCIUM, SERUM 8.2 mg/dL (8.5-10.1); CARBON DIOXIDE 27 mmol/L (21-32); CHLORIDE 103 mmol/L (98-107); CREATININE 2.5 mg/dL (0.6-1.3); GLUCOSE 129 mg/dL (74-106); PHOSPHORUS 2.7 mg/dL (2.5-4.9); POTASSIUM 3.6 mmol/L (3.5-5.1); SODIUM SERUM 139 mmol/L (136-145); TOTAL PROTEIN, SERUM 7.3 g/dL (6.4-8.2); UREA NITROGEN, BLOOD 38 mg/dL (7-18)
[2021-02-26 06:21] LABS: BASOPHILS % (AUTO) 0.1 % (0.0-2.0); EOSINOPHILS % (AUTO) 0.3 % (0.0-6.0); HEMATOCRIT 32 % (39-51); HEMOGLOBIN 10.5 g/dL (13.5-17.5); LYMPHOCYTES # (AUTO) 1.6 K/uL (0.8-4.8); LYMPHOCYTES % (AUTO) 11.4 % (20.0-44.0); MEAN CORPUSCULAR HGB CONC 33 g/dl (31.0-36.0); MEAN CORPUSCULAR VOLUME 90 fL (80-96); MONOCYTES # (AUTO) 1.4 K/uL (0.1-1.30); MONOCYTES % (AUTO) 10.1 % (2.0-12.0); NEUTROPHILS # (AUTO) 10.7 K/uL (1.8-8.9); NEUTROPHILS % (AUTO) 78.1 % (43.0-81.0); PLATELET COUNT (AUTO) 278 K/uL (150-450); WHITE BLOOD COUNT (AUTO) 13.7 K/uL (4.3-11.0)
[2021-02-26] MEDS ORDERED: PANTOPRAZOLE 40 MG TABLET.DR PO SCH (07:30)
--- NOTE | 2021-02-26 07:30 | NUR ---
RECEIVED PT. IN AM ALERT AND ORIENTED X3,BUT SEEMS CONFUSED AT TIMES AND SPEAKS FRENCH.VS STABLE.
[2021-02-26 08:00] VITALS: BP 143/80
[2021-02-26] MEDS: POLYETHYLENE GLYCOL 3350 17 GM POWD.PACK PO SCH (10:05)
[2021-02-26] MEDS: CALCIUM CARBONATE 500 MG TAB.CHEW PO SCH ×2 (10:06→18:11)
[2021-02-26] MEDS: TAMSULOSIN 0.4 MG CAP.SR.24H PO SCH (10:06)
[2021-02-26] MEDS: DOCUSATE SODIUM 100 MG CAPSULE PO SCH (10:06)
[2021-02-26] MEDS: PANTOPRAZOLE 40 MG TABLET.DR PO SCH (10:06)
[2021-02-26] MEDS: ALLOPURINOL 100 MG TABLET PO SCH (10:07)
[2021-02-26] MEDS: BLOOD SUGAR DIAGNOSTIC 1 EACH STRIP IN SCH ×4 (10:08→22:12)
[2021-02-26] MEDS: SEVELAMER CARBONATE 800 MG TABLET PO SCH ×3 (10:09→18:11)
[2021-02-26] MEDS: SENNOSIDES 8.6 MG TABLET PO SCH (10:14)
[2021-02-26] MEDS: PIPERACILLIN /TAZOBACTAM 3.375 G in IV D5W 50 ML IV SCH ×2 (13:23→18:12)
[2021-02-26] MEDS: INSULIN REGULAR, HUMAN 100 UNIT/ML 3 ML VIAL SQ PRN ×3 (13:37→22:15)
[2021-02-26] MEDS: IV NS 0.9% 1,000 ML IV PRN (14:11)
--- NOTE | 2021-02-26 14:30 | NUR ---
psychiatrist in and saw pt.
[2021-02-26 15:00] VITALS: BP 131/88
--- NOTE | 2021-02-26 15:11 | NUR ---
Probable Cause Hearing Pt's 5250 hold upheld on the grounds of danger to himself and gravely disabled.
[2021-02-26] MEDS: ACETAMINOPHEN 325 MG TABLET PO PRN (16:30)
--- NOTE | 2021-02-26 16:40 | NUR ---
given tylenol 650 mg for fever 100.7.pt. flailing arms around,seems confused and a little eratic.
--- NOTE | 2021-02-26 18:30 | NUR ---
BOB ID WORKERS COMPENSATION ADJUSTER HERE AND ORDERS GIVEN.SITTER AT BEDSIDE CONT. PT. ON HOLD.
[2021-02-26 19:26] VITALS: BP 143/80
--- NOTE | 2021-02-26 19:30 | NUR ---
RN NOTES PT A/OX; CONFUSED. ON ROOM AIR TOLERATING WELL WITH NO SOB. SKIN INTACT. NO S/SX OF PAIN OR ACUTE DISTRESS. SAFETY MEASURES IN PLACE: BED IN LOWEST LOCKED POSITION, SIDE RAILS UPX2, CALL LIGHT WITHIN EASY REACH, 1:1 SITTER AT BEDSIDE. PT IN STABLE CONDITION; WILL CONTINUE PLAN OF CARE.
[2021-02-26] MEDS: CEFEPIME 1 GM in IV D5W 50 ML IV SCH (21:11)
[2021-02-26] MEDS: OLANZAPINE 5 MG TABLET PO SCH (21:13)
[2021-02-26] MEDS: ATORVASTATIN 40 MG TABLET PO SCH (21:14)
[2021-02-26] MEDS: INSULIN GLARGINE, 100 UNIT/ML CARTRIDGE SQ SCH (22:14)
[2021-02-27] MEDS: VANCOMYCIN 0.75 GM in IV D5W 250 ML IV SCH (00:45)
[2021-02-27] MEDS: GABAPENTIN 300 MG CAPSULE PO SCH ×3 (05:04→20:37)
[2021-02-27 05:31] VITALS: BP 135/86
[2021-02-27] MEDS: ACETAMINOPHEN 325 MG TABLET PO PRN ×2 (05:43→11:16)
[2021-02-27 06:23] LABS: BILIRUBIN,URINE NEGATIVE (NEGATIVE); COLOR,URINE YELLOW (YELLOW); LEUKOCYTE ESTERASE ,URINE NEGATIVE (NEGATIVE); NITRITE, URINE NEGATIVE (NEGATIVE); PROTEIN,URINE 30 mg/dl (NEGATIVE); UGLUCOSE NEGATIVE (NEGATIVE); UROBILINOGEN,URINE 0.2 EU/dL (0.2)
[2021-02-27] MEDS: BLOOD SUGAR DIAGNOSTIC 1 EACH STRIP IN SCH ×4 (06:39→21:11)
[2021-02-27 06:40] LABS: CALCIUM, SERUM 8.1 mg/dL (8.5-10.1); CARBON DIOXIDE 27 mmol/L (21-32); CHLORIDE 105 mmol/L (98-107); CREATININE 2.4 mg/dL (0.6-1.3); GLUCOSE 143 mg/dL (74-106); POTASSIUM 3.8 mmol/L (3.5-5.1); SODIUM SERUM 140 mmol/L (136-145); UREA NITROGEN, BLOOD 29 mg/dL (7-18)
--- NOTE | 2021-02-27 06:40 | NUR ---
RN NOTES PT A/OX 1 UZBEK SPEAKING ONLY.ON ROOM AIR TOLERATING WELL WITH NO SOB. SKIN INTACT. NO S/SX OF PAIN OR ACUTE DISTRESS. SAFETY MEASURES IN PLACE: BED IN LOWEST LOCKED POSITION, SIDE RAILS UPX2, CALL LIGHT WITHIN EASY REACH, 1:1 SITTER AT BEDSIDE. JELENA HORNER GIVEN PT EXPRESSED FEELING PAIN. PT IN STABLE CONDITION. WILL ENDORSE CARE TO DAY SHIFT NURSE.
--- NOTE | 2021-02-27 07:16 | NUR ---
MS RN OPENING NOTES RECEIVED PATIENT RESTING IN BED. PT A/OX 1 CONFUSED. PATIENT IS BREATHING EVENLY AND NONLABORED ON ROOM AIR TOLERATING WELL WITH NO SOB. PATIENT HAS IV ACCESS TO R FOREARM #20 GAUGE PATENT AND INTACT RUNNING NS @ 75ML/HR. NO S/SX OF PAIN OR ACUTE DISTRESS. SAFETY MEASURES IN PLACE: BED IN LOWEST LOCKED POSITION, SIDE RAILS UPX2, CALL LIGHT WITHIN EASY REACH, 1:1 SITTER AT BEDSIDE. PT IN STABLE CONDITION; WILL CONTINUE TO MONITOR
[2021-02-27 07:19] LABS: BASOPHILS % (AUTO) 0.3 % (0.0-2.0); EOSINOPHILS % (AUTO) 0.3 % (0.0-6.0); HEMATOCRIT 31 % (39-51); HEMOGLOBIN 10.1 g/dL (13.5-17.5); LYMPHOCYTES # (AUTO) 1.8 K/uL (0.8-4.8); LYMPHOCYTES % (AUTO) 14.5 % (20.0-44.0); MEAN CORPUSCULAR HGB CONC 33 g/dl (31.0-36.0); MEAN CORPUSCULAR VOLUME 91 fL (80-96); MONOCYTES # (AUTO) 1.2 K/uL (0.1-1.30); MONOCYTES % (AUTO) 9.3 % (2.0-12.0); NEUTROPHILS # (AUTO) 9.6 K/uL (1.8-8.9); NEUTROPHILS % (AUTO) 75.6 % (43.0-81.0); PLATELET COUNT (AUTO) 278 K/uL (150-450); RED BLOOD CELL COUNT(AUTO) 3.35 MIL/uL (4.5-6.0); WHITE BLOOD COUNT (AUTO) 12.7 K/uL (4.3-11.0)
[2021-02-27] MEDS: SEVELAMER CARBONATE 800 MG TABLET PO SCH ×3 (07:31→17:06)
[2021-02-27] MEDS: PANTOPRAZOLE 40 MG TABLET.DR PO SCH (07:31)
[2021-02-27] MEDS: CALCIUM CARBONATE 500 MG TAB.CHEW PO SCH ×2 (08:31→16:50)
[2021-02-27] MEDS: TAMSULOSIN 0.4 MG CAP.SR.24H PO SCH (08:31)
[2021-02-27] MEDS: POLYETHYLENE GLYCOL 3350 17 GM POWD.PACK PO SCH (08:31)
[2021-02-27] MEDS: DOCUSATE SODIUM 100 MG CAPSULE PO SCH (08:31)
[2021-02-27] MEDS: ALLOPURINOL 100 MG TABLET PO SCH (08:32)
[2021-02-27] MEDS: SENNOSIDES 8.6 MG TABLET PO SCH (08:32)
[2021-02-27 09:30] VITALS: BP 140/73
[2021-02-27] MEDS: INSULIN REGULAR, HUMAN 100 UNIT/ML 3 ML VIAL SQ PRN ×4 (11:16→21:25)
--- NOTE | 2021-02-27 11:22 | NUR ---
RN NOTE PATIENT NOTED WITH 101.0 TEMP, COOLING MEASURES INITIATED. WILL CONTINUE TO MONITOR
[2021-02-27 14:02] LABS: WBC,URINE 0-2 /HPF (0-3)
[2021-02-27 14:03] LABS: BACTERIA,URINE Rare /HPF (None Seen); SQUAMOUS EPITHELIAL CELL,UR Few /HPF (None Seen)
--- NOTE | 2021-02-27 18:35 | NUR ---
MS RN CLOSING NOTES PATIENT RESTING IN BED. PT A/OX 1 CONFUSED. PATIENT IS BREATHING EVENLY AND NONLABORED ON ROOM AIR TOLERATING WELL WITH NO SOB. PATIENT HAS IV ACCESS TO R FOREARM #20 GAUGE PATENT AND INTACT RUNNING NS @ 75ML/HR. NO S/SX OF PAIN OR ACUTE DISTRESS. ALL MEDICATIONS GIVEN ORDERED SAFETY MEASURES IN PLACE: BED IN LOWEST LOCKED POSITION, SIDE RAILS UPX2, CALL LIGHT WITHIN EASY REACH, 1:1 SITTER AT BEDSIDE. PT IN STABLE CONDITION; WILL ENDORSE TO ONCOMING SHIFT
--- NOTE | 2021-02-27 19:45 | NUR ---
MS RN NOTES RECEIVED ON BED A/O X1,LATVIAN,BREATHING NON LABORED,SITTER AT BEDSIDE FOR PSYCHOSIS.WITH IVF NS AT 75ML/HR RATE INFUSING WELL VIA IV PUMP ON LEFT FOREARM SALINE LOCK.WILL CONTINUE TO MONITOR BEHAVIOR AND MANAGE ACCORDINGLY
[2021-02-27] MEDS: CEFEPIME 1 GM in IV D5W 50 ML IV SCH (19:58)
[2021-02-27 20:00] VITALS: BP 136/75
[2021-02-27] MEDS: ATORVASTATIN 40 MG TABLET PO SCH (21:11)
[2021-02-27] MEDS: OLANZAPINE 5 MG TABLET PO SCH (21:11)
--- NOTE | 2021-02-27 21:15 | NUR ---
MS RN NOTES ACCU-CHECK BLOOD SUGAR CHECK 213,COVERED WITH HUMULIN R 4 UNITS PER SLIDING CS\\SCALE,ALONG WITH LANTUS 12 UNITS SCHEDULED.PRESENT IVF INFUSING WELL ON LEFT FOREARM VIA IV PUMP.
[2021-02-27] MEDS: INSULIN GLARGINE, 100 UNIT/ML CARTRIDGE SQ SCH (21:24)
--- NOTE | 2021-02-27 23:00 | NUR ---
MS RN NOTES VANCOMYCIN TROUGH 12,DOSE ADMINISTERED
[2021-02-28] MEDS: VANCOMYCIN 0.75 GM in IV D5W 250 ML IV SCH ×2 (00:07→23:33)
[2021-02-28] MEDS: GABAPENTIN 300 MG CAPSULE PO SCH ×3 (04:48→20:03)
[2021-02-28] MEDS: BLOOD SUGAR DIAGNOSTIC 1 EACH STRIP IN SCH ×4 (05:41→23:19)
[2021-02-28] MEDS: INSULIN REGULAR, HUMAN 100 UNIT/ML 3 ML VIAL SQ PRN ×3 (05:49→17:00)
--- NOTE | 2021-02-28 06:03 | NUR ---
MS RN NOTES ACCU-CHECK BLOOD SUGAR CHECK 142,COVERED WITH HUMULIN R 2 UNITS PER SLIDING SCALE.
--- NOTE | 2021-02-28 06:35 | NUR ---
MS RN NOTES ON BED SLEEPING AROUSABLE TO VERBAL STIMULI,ON 5250 HOLD,SITTER AT BEDSIDE,MED COMPLIANT.IVF INFUSING WELL ON LEFT ARM SALINE LOXK.IN NO ACUTE DISTRESS.
[2021-02-28] MEDS: SEVELAMER CARBONATE 800 MG TABLET PO SCH ×3 (07:45→17:00)
[2021-02-28] MEDS: PANTOPRAZOLE 40 MG TABLET.DR PO SCH (07:45)
[2021-02-28 08:04] LABS: CALCIUM, SERUM 8.1 mg/dL (8.5-10.1); CARBON DIOXIDE 26 mmol/L (21-32); CHLORIDE 103 mmol/L (98-107); CREATININE 2.4 mg/dL (0.6-1.3); GLUCOSE 154 mg/dL (74-106); POTASSIUM 3.7 mmol/L (3.5-5.1); SODIUM SERUM 139 mmol/L (136-145); UREA NITROGEN, BLOOD 30 mg/dL (7-18)
[2021-02-28] MEDS: TAMSULOSIN 0.4 MG CAP.SR.24H PO SCH (08:24)
[2021-02-28] MEDS: CALCIUM CARBONATE 500 MG TAB.CHEW PO SCH ×2 (08:24→17:00)
[2021-02-28] MEDS: SENNOSIDES 8.6 MG TABLET PO SCH (08:24)
[2021-02-28] MEDS: POLYETHYLENE GLYCOL 3350 17 GM POWD.PACK PO SCH (08:24)
[2021-02-28] MEDS: DOCUSATE SODIUM 100 MG CAPSULE PO SCH (08:24)
[2021-02-28] MEDS: ALLOPURINOL 100 MG TABLET PO SCH (08:24)
[2021-02-28 10:34] VITALS: BP 149/78
--- NOTE | 2021-02-28 13:45 | NUR ---
RN NOTE CRITICAL LAB VALUE REPORT PROCALCITONIN 3.45. MD NOTIFIED, NO NEW ORDERS AT THIS TIME. WILL CONTINUE TO MONITOR
[2021-02-28] MEDS: ACETAMINOPHEN 325 MG TABLET PO PRN (19:26)
--- NOTE | 2021-02-28 19:30 | NUR ---
MS RN OPENING NOTES RECEIVED PATIENT RESTING IN BED. PT A/OX 1 CONFUSED. ON ROOM AIR TOLERATING WELL WITH NO SOB NOTED. NOT IN DISTRESS. PATIENT HAS IV ACCESS TO RIGHT FOREARM G20, PATENT AND INTACT WITH IVF NS @ 75ML/HR. NO S/SX OF PAIN OR ACUTE DISTRESS. SAFETY MEASURES IN PLACED. BED ON LOWEST AND LOCKED POSITION, SIDE RAILS UPX2, CALL LIGHT WITHIN EASY REACH, 1:1 SITTER AT BEDSIDE. WILL CONTINUE TO MONITOR.
[2021-02-28 20:00] VITALS: BP 156/86
[2021-02-28] MEDS: CEFEPIME 1 GM in IV D5W 50 ML IV SCH (20:00)
[2021-02-28] MEDS: OLANZAPINE 5 MG TABLET PO SCH (21:10)
[2021-02-28] MEDS: ATORVASTATIN 40 MG TABLET PO SCH (21:10)
[2021-02-28] MEDS: INSULIN GLARGINE, 100 UNIT/ML CARTRIDGE SQ SCH (21:59)
[2021-03-01 04:00] VITALS: BP 141/74
[2021-03-01] MEDS: GABAPENTIN 300 MG CAPSULE PO SCH ×3 (04:28→22:31)
[2021-03-01] MEDS: INSULIN REGULAR, HUMAN 100 UNIT/ML 3 ML VIAL SQ PRN ×4 (05:45→22:49)
[2021-03-01 06:00] VITALS: BP 149/86
[2021-03-01] MEDS: ACETAMINOPHEN 325 MG TABLET PO PRN ×2 (06:24→21:44)
--- NOTE | 2021-03-01 06:45 | NUR ---
MS RN CLOSING NOTES PATIENT RESTING IN BED. PT A/OX 1 CONFUSED. ON ROOM AIR TOLERATING WELL WITH NO SOB NOTED. NOT IN DISTRESS. PATIENT HAS IV ACCESS TO RIGHT FOREARM G20, PATENT AND INTACT WITH IVF NS @ 75ML/HR. NO S/SX OF PAIN OR ACUTE DISTRESS. SAFETY MEASURES IN PLACED. BED ON LOWEST AND LOCKED POSITION, SIDE RAILS UPX2, CALL LIGHT WITHIN EASY REACH, 1:1 SITTER AT BEDSIDE. WILL ENDORSE TO NEXT SHIFT.
[2021-03-01] MEDS: IV NS 0.9% 1,000 ML IV PRN ×2 (07:14→19:17)
--- NOTE | 2021-03-01 07:55 | NUR ---
MS/RN OPENING NOTES RECEIVED PATIENT IN BED. PT A/OX 1, CONFUSED. ON ROOM AIR TOLERATING WELL WITH NO SOB NOTED. PATIENT HAS A SITTER MARY MERCHANT FOR THIS SHIFT. PATIENT HAS IV ACCESS TO RIGHT FOREARM G20, PATENT AND INTACT WITH IVF NS @ 75ML/HR. NO S/SX OF PAIN OR ACUTE DISTRESS. SAFETY MEASURES IN PLACED. BED ON LOWEST AND LOCKED POSITION, SIDE RAILS UPX2, CALL LIGHT WITHIN EASY REACH. WILL CONTINUE WITH THE PLAN OF CARE.
[2021-03-01 07:57] LABS: CARBON DIOXIDE 25 mmol/L (21-32); CHLORIDE 105 mmol/L (98-107); CREATININE 2.3 mg/dL (0.6-1.3); GLUCOSE 149 mg/dL (74-106); POTASSIUM 3.7 mmol/L (3.5-5.1); SODIUM SERUM 138 mmol/L (136-145); UREA NITROGEN, BLOOD 30 mg/dL (7-18)
[2021-03-01 08:42] LABS: BASOPHILS % (AUTO) 0.2 % (0.0-2.0); EOSINOPHILS % (AUTO) 0.5 % (0.0-6.0); HEMATOCRIT 28 % (39-51); HEMOGLOBIN 9.3 g/dL (13.5-17.5); LYMPHOCYTES # (AUTO) 1.2 K/uL (0.8-4.8); LYMPHOCYTES % (AUTO) 10.4 % (20.0-44.0); MEAN CORPUSCULAR HGB CONC 33 g/dl (31.0-36.0); MEAN CORPUSCULAR VOLUME 90 fL (80-96); MONOCYTES # (AUTO) 1.1 K/uL (0.1-1.30); MONOCYTES % (AUTO) 9.7 % (2.0-12.0); NEUTROPHILS # (AUTO) 8.8 K/uL (1.8-8.9); NEUTROPHILS % (AUTO) 79.2 % (43.0-81.0); PLATELET COUNT (AUTO) 277 K/uL (150-450); RED BLOOD CELL COUNT(AUTO) 3.06 MIL/uL (4.5-6.0); WHITE BLOOD COUNT (AUTO) 11.1 K/uL (4.3-11.0)
[2021-03-01] MEDS: SEVELAMER CARBONATE 800 MG TABLET PO SCH ×3 (08:55→17:56)
[2021-03-01] MEDS: CALCIUM CARBONATE 500 MG TAB.CHEW PO SCH ×2 (08:55→17:56)
[2021-03-01] MEDS: POLYETHYLENE GLYCOL 3350 17 GM POWD.PACK PO SCH (08:55)
[2021-03-01] MEDS: SENNOSIDES 8.6 MG TABLET PO SCH (08:55)
[2021-03-01] MEDS: BLOOD SUGAR DIAGNOSTIC 1 EACH STRIP IN SCH ×4 (08:55→22:43)
[2021-03-01] MEDS: DOCUSATE SODIUM 100 MG CAPSULE PO SCH (08:55)
[2021-03-01] MEDS: TAMSULOSIN 0.4 MG CAP.SR.24H PO SCH (08:56)
[2021-03-01] MEDS: ALLOPURINOL 100 MG TABLET PO SCH (08:56)
[2021-03-01] MEDS: PANTOPRAZOLE 40 MG TABLET.DR PO SCH (08:56)
[2021-03-01] MEDS: GLUCERNA SHAKE 237 ML CAN PO SCH (09:05)
[2021-03-01 09:37] LABS: BILIRUBIN,DIRECT 0.1 mg/dL (0.0-0.2); BILIRUBIN,TOTAL 0.4 mg/dL (0.2-1.0); TOTAL PROTEIN, SERUM 6.5 g/dL (6.4-8.2)
--- NOTE | 2021-03-01 19:29 | NUR ---
MS/RN CLOSING NOTES PATIENT IN BED. PT A/OX 1, CONFUSED. ON ROOM AIR TOLERATING WELL WITH NO SOB NOTED. PATIENT HAS A SITTER MARY MERCHANT FOR THIS SHIFT. PATIENT HAS IV ACCESS TO RIGHT FOREARM G20, PATENT AND INTACT WITH IVF NS @ 75ML/HR. NO S/SX OF PAIN OR ACUTE DISTRESS. SAFETY MEASURES IN PLACED. BED ON LOWEST AND LOCKED POSITION, SIDE RAILS UPX2, CALL LIGHT WITHIN EASY REACH. WILL ENDORSE TO THE NEXT SHIFT FOR ILA.
--- NOTE | 2021-03-01 21:00 | NUR ---
sitter at the bedside patient restless alert speaking kprean skin very warm to touch temp 103.3 orrally b/p 200 /106/ hr 100 resp 20 DIRECTOR OF CONTENT MARKETING here to see patient and she was made aware of the temp and ordered blood culturs and thn tylenol was given she is ordering ATBs cooling measures started
[2021-03-01] MEDS ORDERED: MEROPENEM 500 MG in IV NS 0.9% 50 ML IV SCH (21:30)
[2021-03-01] MEDS ORDERED: MEROPENEM 500 MG in IV NS 0.9% 50 ML IV ONE (21:30)
[2021-03-01] MEDS ORDERED: MEROPENEM 500 MG VIAL IV ONE (21:50)
[2021-03-01] MEDS: OLANZAPINE 5 MG TABLET PO SCH (22:32)
[2021-03-01] MEDS: ATORVASTATIN 40 MG TABLET PO SCH (22:35)
[2021-03-01] MEDS: INSULIN GLARGINE, 100 UNIT/ML CARTRIDGE SQ SCH (22:47)
[2021-03-02] MEDS: VANCOMYCIN 0.75 GM in IV D5W 250 ML IV SCH (00:29)
[2021-03-02 00:46] VITALS: BP 138/75
[2021-03-02] MEDS: ACETAMINOPHEN 325 MG TABLET PO PRN ×3 (03:35→22:18)
[2021-03-02] MEDS: GABAPENTIN 300 MG CAPSULE PO SCH ×3 (04:22→20:15)
--- NOTE | 2021-03-02 04:40 | NUR ---
latest temp 102.5 tylenol given 0230 swallows w/o problems cooperative speaking only in [place] Went to CT for scanning of his right knee which is swollen and hot to touch ordered by TELEVISION REPORTER BOB parekh She was made aware of his temp at 2100 103.1 blood cultures taken and atbs ordered. cooling measures. he is quiet and cooperative. sitter at the bedside as ordered on a 5250 hold
[2021-03-02] MEDS: INSULIN REGULAR, HUMAN 100 UNIT/ML 3 ML VIAL SQ PRN ×4 (06:16→21:41)
[2021-03-02] MEDS: BLOOD SUGAR DIAGNOSTIC 1 EACH STRIP IN SCH ×4 (06:20→21:29)
--- NOTE | 2021-03-02 07:48 | NUR ---
MS/RN OPENING NOTES RECEIVED PATIENT IN BED. PT A/OX 1, CONFUSED. ON ROOM AIR TOLERATING WELL WITH NO SOB NOTED. PATIENT HAS A SITTER BUN MACHINE OPERATOR RIGO FOR THIS SHIFT. PATIENT HAS IV ACCESS TO RIGHT HAND #22G, PATENT AND INTACT WITH IVF NS @ 75ML/HR. NO S/SX OF PAIN OR ACUTE DISTRESS. SAFETY MEASURES IN PLACED. BED ON LOWEST AND LOCKED POSITION, SIDE RAILS UPX2, CALL LIGHT WITHIN EASY REACH. WILL CONTINUE WITH THE PLAN OF CARE.
[2021-03-02 08:14] LABS: CALCIUM, SERUM 8.2 mg/dL (8.5-10.1); CARBON DIOXIDE 25 mmol/L (21-32); CHLORIDE 104 mmol/L (98-107); CREATININE 2.3 mg/dL (0.6-1.3); GLUCOSE 152 mg/dL (74-106); POTASSIUM 3.7 mmol/L (3.5-5.1); SODIUM SERUM 139 mmol/L (136-145); UREA NITROGEN, BLOOD 29 mg/dL (7-18)
[2021-03-02] MEDS: ALLOPURINOL 100 MG TABLET PO SCH (08:29)
[2021-03-02] MEDS: DOCUSATE SODIUM 100 MG CAPSULE PO SCH (08:29)
[2021-03-02] MEDS: SENNOSIDES 8.6 MG TABLET PO SCH (08:29)
[2021-03-02] MEDS: PANTOPRAZOLE 40 MG TABLET.DR PO SCH (08:29)
[2021-03-02] MEDS: TAMSULOSIN 0.4 MG CAP.SR.24H PO SCH (08:29)
[2021-03-02] MEDS: CALCIUM CARBONATE 500 MG TAB.CHEW PO SCH ×2 (08:29→17:04)
[2021-03-02] MEDS: SEVELAMER CARBONATE 800 MG TABLET PO SCH ×3 (08:29→17:04)
[2021-03-02] MEDS: POLYETHYLENE GLYCOL 3350 17 GM POWD.PACK PO SCH (08:30)
[2021-03-02] MEDS: MEROPENEM 500 MG in IV NS 0.9% 100 ML IV SCH ×2 (08:31→20:16)
[2021-03-02] MEDS: GLUCERNA SHAKE 237 ML CAN PO SCH (08:33)
--- NOTE | 2021-03-02 18:58 | NUR ---
MS/RN CLOSING NOTES PATIENT IN BED. PT A/OX 1, CONFUSED. ON ROOM AIR TOLERATING WELL WITH NO SOB NOTED. PATIENT HAS A SITTER PATTERN HANGER RIGO FOR THIS SHIFT. PATIENT HAS IV ACCESS TO RIGHT HAND #22G, PATENT AND INTACT WITH IVF NS @ 75ML/HR. NO S/SX OF PAIN OR ACUTE DISTRESS. REMAINED AFEBRILE THE WHOLE SHIFT. ALL NEEDS ARE MET. SAFETY MEASURES IN PLACED. BED ON LOWEST AND LOCKED POSITION, SIDE RAILS UPX2, CALL LIGHT WITHIN EASY REACH. WILL ENDORSE TO THE NEXT SHIFT FOR ILA.
--- NOTE | 2021-03-02 19:20 | NUR ---
RN OPENING NOTE RECEIVED PT RESTING IN BED, AWAKE, A/OX1, VERBALLY RESPONSIVE BUT WITH CONFUSION. NO S/S OF PAIN OR DISCOMFORT NOTED. BREATHING EVEN AND UNLABORED. ON ROOM AIR. IV SITE ON RH #22G INTACT/PATENT, RUNNING NS @75ML/HR. PT IN NO ACUTE DISTRESS. SAFETY MEASURES IN PLACE, BED IN LOWEST LOCKED POSITION, S/R UP X2, CALL LIGHT WITHIN REACH. WILL CONTINUE TO MONITOR.
[2021-03-02] MEDS: IV NS 0.9% 1,000 ML IV PRN (19:42)
[2021-03-02 20:00] VITALS: BP 123/75
[2021-03-02] MEDS: INSULIN GLARGINE, 100 UNIT/ML CARTRIDGE SQ SCH (21:40)
[2021-03-02] MEDS: OLANZAPINE 5 MG TABLET PO SCH (22:11)
[2021-03-02] MEDS: ATORVASTATIN 40 MG TABLET PO SCH (22:13)
[2021-03-02] MEDS: VANCOMYCIN 1 GM in IV D5W 250 ML IV SCH (23:57)
[2021-03-03] MEDS: GABAPENTIN 300 MG CAPSULE PO SCH ×3 (04:38→21:20)
[2021-03-03] MEDS: BLOOD SUGAR DIAGNOSTIC 1 EACH STRIP IN SCH ×4 (06:33→22:41)
[2021-03-03] MEDS: INSULIN REGULAR, HUMAN 100 UNIT/ML 3 ML VIAL SQ PRN ×2 (06:43→22:38)
--- NOTE | 2021-03-03 07:30 | NUR ---
RN CLOSING NOTES PT RESTING IN BED, AWAKE, A/OX1, VERBALLY RESPONSIVE WITH CONFUSION. REORIENTATION PROVIDED. NO S/S OF PAIN/DISCOMFORT NOTED. ON ROOM AIR AND [place]. WELL. RESP EVEN/UNLABORED. NO SOB. PT IN NO ACUTE DISTRESS DURING THE SHIFT. ENDORSED TO NEXT SHIFT NURSE.
[2021-03-03 07:33] LABS: CARBON DIOXIDE 22 mmol/L (21-32); CHLORIDE 104 mmol/L (98-107); CREATININE 2.4 mg/dL (0.6-1.3); GLUCOSE 156 mg/dL (74-106); POTASSIUM 4.3 mmol/L (3.5-5.1); SODIUM SERUM 137 mmol/L (136-145); UREA NITROGEN, BLOOD 29 mg/dL (7-18)
--- NOTE | 2021-03-03 07:56 | NUR ---
MS RN OPENING NOTES RECEIVED PATIENT IN BED, AWAKE, A/O X1. PATIENT ON ROOM AIR; BREATHING EVEN AND UNLABORED AT THIS TIME. NO COMPLAINS OF PAIN. IV ACCESS ON R HAND G #22 RUNNING NS @ 75 MLS/HR. SAFETY PRECAUTIONS IN PLACE; BED IN LOW POSITION AND LOCKED, RAILS UP X2, CALL LIGHT WITHIN REACH. WILL CONTINUE TO MONITOR PATIENT.
[2021-03-03] MEDS ORDERED: LIDOCAINE 1% INJ 50 ML MDV IJ ONE (08:30)
[2021-03-03] MEDS: GLUCERNA SHAKE 237 ML CAN PO SCH (09:02)
[2021-03-03] MEDS: MEROPENEM 500 MG in IV NS 0.9% 100 ML IV SCH ×2 (09:08→21:19)
[2021-03-03] MEDS: CALCIUM CARBONATE 500 MG TAB.CHEW PO SCH ×2 (09:11→17:18)
[2021-03-03] MEDS: SEVELAMER CARBONATE 800 MG TABLET PO SCH ×3 (09:11→17:18)
[2021-03-03] MEDS: DOCUSATE SODIUM 100 MG CAPSULE PO SCH (09:11)
[2021-03-03] MEDS: SENNOSIDES 8.6 MG TABLET PO SCH (09:11)
[2021-03-03] MEDS: TAMSULOSIN 0.4 MG CAP.SR.24H PO SCH (09:12)
[2021-03-03] MEDS: POLYETHYLENE GLYCOL 3350 17 GM POWD.PACK PO SCH (09:12)
[2021-03-03] MEDS: ALLOPURINOL 100 MG TABLET PO SCH (09:12)
[2021-03-03] MEDS: PANTOPRAZOLE 40 MG TABLET.DR PO SCH (09:13)
[2021-03-03 09:52] LABS: BASOPHILS # (AUTO) 0.1 K/uL (0.0-0.2); BASOPHILS % (AUTO) 0.4 % (0.0-2.0); HEMATOCRIT 27 % (39-51); HEMOGLOBIN 8.9 g/dL (13.5-17.5); LYMPHOCYTES # (AUTO) 1.4 K/uL (0.8-4.8); LYMPHOCYTES % (AUTO) 10.4 % (20.0-44.0); MEAN CORPUSCULAR HGB CONC 33 g/dl (31.0-36.0); MEAN CORPUSCULAR VOLUME 91 fL (80-96); MONOCYTES # (AUTO) 1.2 K/uL (0.1-1.30); MONOCYTES % (AUTO) 8.6 % (2.0-12.0); NEUTROPHILS # (AUTO) 10.7 K/uL (1.8-8.9); NEUTROPHILS % (AUTO) 79.6 % (43.0-81.0); PLATELET COUNT (AUTO) 372 K/uL (150-450); RED BLOOD CELL COUNT(AUTO) 2.98 MIL/uL (4.5-6.0); WHITE BLOOD COUNT (AUTO) 13.4 K/uL (4.3-11.0)
--- NOTE | 2021-03-03 18:36 | NUR ---
MS RN CLOSING NOTES PATIENT REMAINS IN BED, ASLEEP. PATIENT ON ROOM AIR; BREATHING EVEN AND UNLABORED AT THIS TIME; NO SOB NOTED DURING THE DAY. GENERALIZED PAIN TO TOUCH. IV ACCESS ON R HAND G #22 RUNNING NS @ 75 MLS/HR. ALL NEEDS ATTENDED DURING THE DAY. SAFETY PRECAUTIONS IN PLACE; BED IN LOW POSITION AND LOCKED, RAILS UP X2, CALL LIGHT WITHIN REACH. 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
--- NOTE | 2021-03-03 19:44 | NUR ---
MS RN Opening Notes Patient was seen awake in bed resting. Patient's A/Ox1. Patient's on room air with no respiratory distress noted. Patient has an IV access on his right hand gauge#22. Patient's in no acute distress at this time. Safety measures in place: Bed locked, bed alarm on, side rails upx3, and call light within reach of the patient. Will continue to monitor the patient.
[2021-03-03 20:00] VITALS: BP 156/95
[2021-03-03] MEDS: OLANZAPINE 5 MG TABLET PO SCH (21:20)
[2021-03-03] MEDS: ATORVASTATIN 40 MG TABLET PO SCH (21:20)
[2021-03-03] MEDS: INSULIN GLARGINE, 100 UNIT/ML CARTRIDGE SQ SCH (22:36)
[2021-03-04] MEDS: VANCOMYCIN 1 GM in IV D5W 250 ML IV SCH (00:54)
[2021-03-04] MEDS: GABAPENTIN 300 MG CAPSULE PO SCH ×3 (04:43→21:19)
[2021-03-04] MEDS: BLOOD SUGAR DIAGNOSTIC 1 EACH STRIP IN SCH ×4 (07:23→22:17)
[2021-03-04 07:39] LABS: CALCIUM, SERUM 8.1 mg/dL (8.5-10.1); CARBON DIOXIDE 24 mmol/L (21-32); CHLORIDE 104 mmol/L (98-107); CREATININE 2.5 mg/dL (0.6-1.3); GLUCOSE 112 mg/dL (74-106); POTASSIUM 3.6 mmol/L (3.5-5.1); SODIUM SERUM 138 mmol/L (136-145); UREA NITROGEN, BLOOD 32 mg/dL (7-18)
[2021-03-04 08:00] VITALS: BP 145/81
--- NOTE | 2021-03-04 08:00 | NUR ---
m/s associate professor of education: notes received pt in bed awake, a/ox1-2. indonesian speaking with little upper sorbian. pt still on a 14 days hold, sitter at bedside. pt complaints of pain when moved. noted with arms, right fingers, both knee swelling. elevated with pillows. will continue to monitor.
[2021-03-04] MEDS: PANTOPRAZOLE 40 MG TABLET.DR PO SCH (08:55)
[2021-03-04] MEDS: TAMSULOSIN 0.4 MG CAP.SR.24H PO SCH (08:55)
[2021-03-04] MEDS: SENNOSIDES 8.6 MG TABLET PO SCH (08:56)
[2021-03-04] MEDS: ALLOPURINOL 100 MG TABLET PO SCH (08:56)
[2021-03-04] MEDS: POLYETHYLENE GLYCOL 3350 17 GM POWD.PACK PO SCH (08:56)
[2021-03-04] MEDS: CALCIUM CARBONATE 500 MG TAB.CHEW PO SCH ×2 (08:56→16:12)
[2021-03-04] MEDS: SEVELAMER CARBONATE 800 MG TABLET PO SCH ×3 (08:56→17:03)
[2021-03-04] MEDS: DOCUSATE SODIUM 100 MG CAPSULE PO SCH (08:56)
[2021-03-04] MEDS: GLUCERNA SHAKE 237 ML CAN PO SCH (09:00)
[2021-03-04] MEDS: MEROPENEM 500 MG in IV NS 0.9% 100 ML IV SCH ×2 (10:00→21:18)
--- NOTE | 2021-03-04 12:00 | NUR ---
m/s skin former: notes having lunch with assistance from sitter. hob elevated. needs attended. will continue to monitor.
--- NOTE | 2021-03-04 14:00 | NUR ---
m/s toe puncher: notes resting comfortable in bed. no distress noted. will continue to monitor.
[2021-03-04] MEDS: ACETAMINOPHEN 325 MG TABLET PO PRN (16:12)
[2021-03-04] MEDS: IV NS 0.9% 1,000 ML IV PRN (16:16)
[2021-03-04] MEDS: INSULIN REGULAR, HUMAN 100 UNIT/ML 3 ML VIAL SQ PRN ×2 (17:06→21:59)
--- NOTE | 2021-03-04 17:35 | NUR ---
m/s bag repairer: md visit dr. rodriguez at bedside assessing pt's left knee via ultrasound. dr. rodriguez wants to do a bedside procedure. cory kern (daughter) notified and able to speak to dr. rodriguez and updated plan of care. daughter agreed with treatment plan and provided consent for left knee arthrocentesis over the phone with another nurse as a witnessed. Addendum: 03/04/21 at [address] rodriguez assessed swelling to right fingers, stated, "it's arthritis."
--- NOTE | 2021-03-04 17:45 | NUR ---
m/s flat clothier: notes left knee arthrocentesis performed at bedside, pt tolerated procedure well. dorina wrap applied by and fab to release after 2 hours. sitter remains at bedside.
[2021-03-04 18:22] VITALS: BP 164/93
--- NOTE | 2021-03-04 18:40 | NUR ---
m/s french cord binder: notes synovial fluids taken to pathology/lab for analysis.
--- NOTE | 2021-03-04 19:30 | NUR ---
m/s city clerk: notes report given to beatriz (rn) for continuity of care.
--- NOTE | 2021-03-04 19:54 | NUR ---
MS RN Opening Notes Patient was seen sleeping in bed. Patient's A/Ox1-2. Patient's on room air with no respiratory distress noted. Patient has an IV access on his right hand gauge#22, which is intact, patent, and flushing well. Patient's in no acute distress at this time. Safety measures in place: Bed locked, bed alarm on, side rails upx3, and call light within reach of the patient. Will continue to monitor the patient.
[2021-03-04 20:00] VITALS: BP 128/52
[2021-03-04] MEDS: ATORVASTATIN 40 MG TABLET PO SCH (21:18)
[2021-03-04] MEDS: OLANZAPINE 5 MG TABLET PO SCH (21:18)
--- NOTE | 2021-03-04 21:49 | NUR ---
MS RN Notes Patient's blood sugar at 2149 was 160mg/dL. Will give ordered insulin and monitor the patient.
[2021-03-04] MEDS: INSULIN GLARGINE, 100 UNIT/ML CARTRIDGE SQ SCH (21:56)
[2021-03-05] MEDS: VANCOMYCIN 1 GM in IV D5W 250 ML IV SCH (00:43)
[2021-03-05] MEDS: GABAPENTIN 300 MG CAPSULE PO SCH ×3 (05:48→21:24)
--- NOTE | 2021-03-05 06:18 | NUR ---
MS RN Notes Patient's blood sugar at 0609 was 123 mg/dL. Will continue to monitor the patient.
[2021-03-05 06:54] LABS: BASOPHILS % (AUTO) 0.2 % (0.0-2.0); EOSINOPHILS % (AUTO) 1.9 % (0.0-6.0); HEMATOCRIT 24 % (39-51); HEMOGLOBIN 8.3 g/dL (13.5-17.5); LYMPHOCYTES # (AUTO) 1.3 K/uL (0.8-4.8); LYMPHOCYTES % (AUTO) 12.4 % (20.0-44.0); MEAN CORPUSCULAR HGB CONC 35 g/dl (31.0-36.0); MEAN CORPUSCULAR VOLUME 90 fL (80-96); MONOCYTES % (AUTO) 9.4 % (2.0-12.0); NEUTROPHILS # (AUTO) 7.9 K/uL (1.8-8.9); NEUTROPHILS % (AUTO) 76.1 % (43.0-81.0); PLATELET COUNT (AUTO) 451 K/uL (150-450); RED BLOOD CELL COUNT(AUTO) 2.67 MIL/uL (4.5-6.0); WHITE BLOOD COUNT (AUTO) 10.4 K/uL (4.3-11.0)
[2021-03-05] MEDS: BLOOD SUGAR DIAGNOSTIC 1 EACH STRIP IN SCH ×4 (06:58→21:37)
--- NOTE | 2021-03-05 07:21 | NUR ---
MS RN Closing Notes Patient was seen sleeping in bed. Patient's A/Ox1. Patient's on room air with no respiratory distress noted. Patient has a saline lock on his right hand gauge#22, which is intact, patent, and flushing well. Patient's in no acute distress at this time. Safety measures in place: Bed locked, bed alarm on, side rails upx3, and call light within reach of the patient. Endorsed care to the day shift nurse.
[2021-03-05 07:25] LABS: CARBON DIOXIDE 25 mmol/L (21-32); CHLORIDE 104 mmol/L (98-107); CREATININE 2.4 mg/dL (0.6-1.3); GLUCOSE 129 mg/dL (74-106); POTASSIUM 3.9 mmol/L (3.5-5.1); SODIUM SERUM 139 mmol/L (136-145); UREA NITROGEN, BLOOD 34 mg/dL (7-18)
--- NOTE | 2021-03-05 08:00 | NUR ---
MS RN OPENING NOTES RECEIVED PATIENT IN BED, RESTING. EASY TO AROUSE, A/O X1. SWEDISH SPEAKING BUT UNDERSTANDS LITTLE GREENLANDIC. STABLE ON ROOM AIR - NO SOB NOTED. NO DISTRESS/DISCOMFORT NOTED. IV ACCESS TO RIGHT HAND #22 - RUNNING NS @ 75 ML/HR. SAFETY MEASURES IN PLACE. CALL LIGHT WITHIN REACH. WILL CONTINUE TO MONITOR.
[2021-03-05] MEDS: CALCIUM CARBONATE 500 MG TAB.CHEW PO SCH ×2 (08:52→17:01)
[2021-03-05] MEDS: DOCUSATE SODIUM 100 MG CAPSULE PO SCH (08:52)
[2021-03-05] MEDS: SEVELAMER CARBONATE 800 MG TABLET PO SCH ×3 (08:52→17:01)
[2021-03-05] MEDS: ALLOPURINOL 100 MG TABLET PO SCH (08:53)
[2021-03-05] MEDS: POLYETHYLENE GLYCOL 3350 17 GM POWD.PACK PO SCH (08:53)
[2021-03-05] MEDS: PANTOPRAZOLE 40 MG TABLET.DR PO SCH (08:53)
[2021-03-05] MEDS: SENNOSIDES 8.6 MG TABLET PO SCH (08:53)
[2021-03-05] MEDS: TAMSULOSIN 0.4 MG CAP.SR.24H PO SCH (08:53)
[2021-03-05] MEDS: GLUCERNA SHAKE 237 ML CAN PO SCH ×3 (08:55→17:04)
[2021-03-05] MEDS: MEROPENEM 500 MG in IV NS 0.9% 100 ML IV SCH ×2 (08:56→21:26)
[2021-03-05 10:03] VITALS: BP 137/83
[2021-03-05 10:07] LABS: *ANA ANTI-CENTROMERE B AB <0.2 AI (0.0-0.9); *ANA ANTI-DNA(DS) AB, QN <1 IU/mL (0-9); *ANA ANTI-JO-1 <0.2 AI (0.0-0.9); *ANA ANTICHROMATIN ANTIBODY <0.2 AI (0.0-0.9); *ANA RNP ANTIBODIES 0.2 AI (0.0-0.9); *ANA SJOGREN'S ANTI-SS-A <0.2 AI (0.0-0.9); *ANA SJOGREN'S ANTI-SS-B <0.2 AI (0.0-0.9); *ANAANTI-SCLERODERMA-70 AB <0.2 AI (0.0-0.9); *ANASMITH AB <0.2 AI (0.0-0.9)
--- NOTE | 2021-03-05 11:00 | NUR ---
MS RN NOTE 3428 DISCONTINUED
[2021-03-05] MEDS: INSULIN REGULAR, HUMAN 100 UNIT/ML 3 ML VIAL SQ PRN ×3 (11:49→21:42)
--- NOTE | 2021-03-05 18:31 | NUR ---
MS RN CLOSING NOTE PATIENT CURRENTLY LYING IN BED, RESTING. EASY TO AROUSE, A/O X1. URDU SPEAKING BUT UNDERSTANDS LITTLE INDIAN. STABLE ON ROOM AIR - NO SOB NOTED. NO DISTRESS/DISCOMFORT NOTED. IV ACCESS TO RIGHT HAND #22 - SALINE LOCKED. SAFETY MEASURES IN PLACE. CALL LIGHT WITHIN REACH. WILL ENDORSE TO PRESS TECHNICIAN NURSE FOR [facility].
--- NOTE | 2021-03-05 19:30 | NUR ---
RN OPENING NOTE PATIENT IN BED, EYES CLOSED. EASILY AWAKENED. PATIENT UNDERSTANDS LITTLE [place]UR[place]. PATIENT IS A/O X 1 AT THIS TIME, ABLE TO MAKE NEEDS KNOWN WHEN ASKED. R HAND 22 G SALINE LOCKED, PATENT AND INTACT. BREATHING EVEN AND UNLABORED. SAFETY MEASURES IN PLACE: BED LOCKED AND IN LOWEST POSITION, SIDE RAILS UP, BED ALARM ON, CALL LIGHT WITHIN REACH. WILL MONITOR PATIENT CLOSELY.
[2021-03-05 20:00] VITALS: BP 158/86
[2021-03-05] MEDS: OLANZAPINE 5 MG TABLET PO SCH (21:24)
[2021-03-05] MEDS: ATORVASTATIN 40 MG TABLET PO SCH (21:24)
[2021-03-05] MEDS: INSULIN GLARGINE, 100 UNIT/ML CARTRIDGE SQ SCH (21:43)
[2021-03-05] MEDS: ACETAMINOPHEN 325 MG TABLET PO PRN (21:57)
--- NOTE | 2021-03-05 21:57 | NUR ---
RN NOTE OBSERVED PATIENT TO BE WARMER, TEMP CHECKED IT WAS 100.6 F. COOLING MEASURES INITIATED, TYLENOL GIVEN. WILL EVALUATE MED EFFECTIVENESS AND MONITOR PATIENT'S TEMP.
--- NOTE | 2021-03-05 22:00 | NUR ---
RN NOTE BS 149 MG/DL. 2 UNITS OF REGULAR INSULIN GIVEN AND ADMINISTERED LANTUS. PROVIDED PATIENT SNACKS. WILL MONITOR PATIENT FOR HYPO/HYPERGLYCEMIA.
--- NOTE | 2021-03-05 23:00 | NUR ---
RN NOTE TEMP NOW DOWN TO 99.5
[2021-03-06] MEDS: VANCOMYCIN 1 GM in IV D5W 250 ML IV SCH (00:39)
[2021-03-06] MEDS: GABAPENTIN 300 MG CAPSULE PO SCH ×3 (04:56→20:03)
[2021-03-06 06:15] LABS: BASOPHILS % (AUTO) 0.2 % (0.0-2.0); EOSINOPHILS % (AUTO) 2.2 % (0.0-6.0); HEMATOCRIT 25 % (39-51); HEMOGLOBIN 8.5 g/dL (13.5-17.5); LYMPHOCYTES # (AUTO) 1.1 K/uL (0.8-4.8); MEAN CORPUSCULAR HGB CONC 34 g/dl (31.0-36.0); MEAN CORPUSCULAR VOLUME 90 fL (80-96); MONOCYTES # (AUTO) 0.7 K/uL (0.1-1.30); MONOCYTES % (AUTO) 8.8 % (2.0-12.0); NEUTROPHILS # (AUTO) 6.3 K/uL (1.8-8.9); NEUTROPHILS % (AUTO) 75.8 % (43.0-81.0); PLATELET COUNT (AUTO) 514 K/uL (150-450); RED BLOOD CELL COUNT(AUTO) 2.83 MIL/uL (4.5-6.0); WHITE BLOOD COUNT (AUTO) 8.4 K/uL (4.3-11.0)
[2021-03-06] MEDS: BLOOD SUGAR DIAGNOSTIC 1 EACH STRIP IN SCH ×3 (06:34→17:05)
[2021-03-06] MEDS: INSULIN REGULAR, HUMAN 100 UNIT/ML 3 ML VIAL SQ PRN ×3 (06:36→17:26)
--- NOTE | 2021-03-06 07:19 | NUR ---
RN CLOSING NOTE PATIENT IS AWAKE, PATIENT IS ABLE TO MAKE NEEDS KNOWN. LHAND IV ACCESS PATENT AND INTACT. BREATHING EVEN AND UNLABORED. TEREZA HANDS ELEVATED. DRESSING ON L KNEE C/D/I. SAFETY MEASURES IMPLEMENTED. ALL ORDERS CARRIED OUT. ALL NEEDS MET AND ATTENDED. WILL ENDORSE TO DAY SHIFT NURSE FOR [facility].
--- NOTE | 2021-03-06 07:36 | NUR ---
MS RN OPENING NOTES RECEIVED PATIENT IN BED, RESTING. EASY TO AROUSE, A/O X1. [place] SPEAKING BUT UNDERSTANDS LITTLE [place]. STABLE ON ROOM AIR - NO SOB NOTED. NO DISTRESS/DISCOMFORT NOTED. IV ACCESS TO RIGHT HAND #22 - SALINE LOCKED. SAFETY MEASURES IN PLACE. CALL LIGHT WITHIN REACH. WILL CONTINUE TO MONITOR.
[2021-03-06 07:50] LABS: CARBON DIOXIDE 25 mmol/L (21-32); CHLORIDE 106 mmol/L (98-107); GLUCOSE 181 mg/dL (74-106); SODIUM SERUM 140 mmol/L (136-145); UREA NITROGEN, BLOOD 42 mg/dL (7-18)
[2021-03-06 07:51] LABS: CREATININE 2.6 mg/dL (0.6-1.3); MAGNESIUM 2.6 mg/dL (1.8-2.4); PHOSPHORUS 4.4 mg/dL (2.5-4.9)
[2021-03-06 08:00] VITALS: BP 162/71
[2021-03-06] MEDS: PANTOPRAZOLE 40 MG TABLET.DR PO SCH (08:36)
[2021-03-06] MEDS: SEVELAMER CARBONATE 800 MG TABLET PO SCH ×3 (08:36→17:11)
[2021-03-06] MEDS: SENNOSIDES 8.6 MG TABLET PO SCH (08:36)
[2021-03-06] MEDS: DOCUSATE SODIUM 100 MG CAPSULE PO SCH (08:36)
[2021-03-06] MEDS: TAMSULOSIN 0.4 MG CAP.SR.24H PO SCH (08:36)
[2021-03-06] MEDS: ALLOPURINOL 100 MG TABLET PO SCH (08:36)
[2021-03-06] MEDS: CALCIUM CARBONATE 500 MG TAB.CHEW PO SCH ×2 (08:36→17:11)
[2021-03-06] MEDS: GLUCERNA SHAKE 237 ML CAN PO SCH ×2 (08:37→17:12)
[2021-03-06] MEDS: POLYETHYLENE GLYCOL 3350 17 GM POWD.PACK PO SCH (08:37)
[2021-03-06] MEDS: MEROPENEM 500 MG in IV NS 0.9% 100 ML IV SCH (08:55)
[2021-03-06 16:00] VITALS: BP 170/98
[2021-03-06] MEDS ORDERED: MELO-107 PO (16:47)
[2021-03-06] MEDS ORDERED: OLAN5TAB3 PO (16:47)
[2021-03-06] MEDS ORDERED: VANC1PLA9 IV (16:47)
[2021-03-06] MEDS ORDERED: PANT40TA2 PO (16:47)
[2021-03-06] MEDS ORDERED: MERO500V23 IV (16:47)
--- NOTE | 2021-03-06 19:22 | NUR ---
MS RN CLOSING NOTE PATIENT CURRENTLY LYING IN BED, RESTING. EASY TO AROUSE, A/O X1. YI SPEAKING BUT UNDERSTANDS LITTLE MAURITIAN. STABLE ON ROOM AIR - NO SOB NOTED. NO DISTRESS/DISCOMFORT NOTED. IV ACCESS TO RIGHT HAND #22 - SALINE LOCKED. PENDING DISCHARGE BACK TO [facility]. ALL EXITCARE AND DISCHARGE PAPERWORK DONE. REPORT GIVEN TO RN AT RECEIVING FACILITY. SAFETY MEASURES IN PLACE. CALL LIGHT WITHIN REACH. WILL ENDORSE TO SENIOR DYNAMICS CRM DEVELOPER NURSE FOR [facility].
--- NOTE | 2021-03-06 19:25 | NUR ---
RN OPENING NOTES RECEIVED PT AWAKE IN BED, A/OX1, VERBALLY RESPONSIVE. NO S/S OF PAIN OR DISCOMFORT NOTED. RESPIRATIONS EVEN AND UNLABORED. IV ACCESS ON LH INTACT, PATENT AND FLUSHES WELL. PT FOR DISCHARGE TO [facility]. FOLLOW UP CALL MADE TO [facility] SPOKE WITH [facility], WITH PUNCHBOARD INSERTER TIME NOW AROUND 2100. PT IN NO ACUTE DISTRESS. SAFETY MEASURES MAINTAINED, BED IN LOWEST LOCKED POSITION, S/R UPX2, CALL LIGHT WITHIN REACH. WILL CONTINUE TO MONITOR.
[2021-03-06] MEDS: ACETAMINOPHEN 325 MG TABLET PO PRN (20:03)
--- NOTE | 2021-03-06 20:10 | NUR ---
RN NOTE PT WITH TEMP 100.3. GIVEN TYLENOL 650MG AND COOLING MEASURES DONE.
--- NOTE | 2021-03-06 21:40 | NUR ---
RN NOTE PT TEMP NOW AT 99.1. INFORMED RECEIVING NURSE, ELISEO, AT [facility]. OK FOR TRANSFER, AWAITING TRANSPORTATION.
--- NOTE | 2021-03-06 22:05 | NUR ---
PHOTOGRAPHER LITHOGRAPHIC NOTE PT PICKED UP BY [facility] [place] FOR TRANSFER TO [facility]. RECEIVING FACILITY AWARE, SPOKE WITH NURSE GOMES. PT IN NO ACUTE DISTRESS, NO S/S OF PAIN OR DISCOMFORT. EXITCARE DONE, DISCHARGE INSTRUCTIONS PROVIDED AND PAPERWORKS SENT.
[2021-03-06] MEDS ORDERED: AMLODIPINE BESYLATE 5 MG TABLET PO SCH (22:30)
== END 2021-03-06 22:00 | DRG 871 ==
LOC: TELE 20:36 → MED 21:33
PROVIDERS: ADMIT Internal Medicine; ATTEND Nurse Practitioner Acute Care
PROC: 0S9D3ZX Drainage of Left Knee Joint, Percutaneous Approach, Diagnostic (ICD-10-PCS; principal; 2021-03-04)
DX: A41.9 Sepsis, unspecified organism (principal); G93.41 Metabolic encephalopathy; J15.9 Unspecified bacterial pneumonia; N17.9 Acute kidney failure, unspecified; N39.0 Urinary tract infection, site not specified; F03.91 Unspecified dementia, unspecified severity, with behavioral disturbance; M00.9 Pyogenic arthritis, unspecified; F41.9 Anxiety disorder, unspecified; E11.22 Type 2 diabetes mellitus with diabetic chronic kidney disease; I12.9 Hypertensive chronic kidney disease with stage 1 through stage 4 chronic kidney disease, or unspecified chronic kidney disease; K21.9 Gastro-esophageal reflux disease without esophagitis; N18.9 Chronic kidney disease, unspecified; Z86.73 Personal history of transient ischemic attack (TIA), and cerebral infarction without residual deficits; Z82.3 Family history of stroke; R31.29 Other microscopic hematuria; N40.0 Benign prostatic hyperplasia without lower urinary tract symptoms; M10.9 Gout, unspecified; Z87.828 Personal history of other (healed) physical injury and trauma; F29 Unspecified psychosis not due to a substance or known physiological condition; F25.9 Schizoaffective disorder, unspecified; M79.89 Other specified soft tissue disorders
CPT/HCPCS: 36415; 71045-TC; 71250-TC; 73090-TC; 73200-TC; 73700-TC; 80048-TC; 80053-TC; 80061-TC; 80076-TC; 80202-TC; 81001; 82962-TC; 83605-TC; 83615-TC; 83735-TC; 84100-TC; 85025-TC; 85652-TC; 86225; 86235; 87040-TC; 87070-TC; 87081-TC; 87086-TC; 89060-TC; 97112-TC; 97530-TC; 97535-TC; A6403; G0378; J0692; J1815; J2185; J2543; J3370; J3490; J7030; J7060